=== PATIENT | female | born 1955 | race Caucasian/White ===

== ENCOUNTER → 2017-04-29 | Outpatient (CLI) | payer BC ==
--- NOTE | 2017-04-29 08:10 | US ---
EXAMINATION TYPE: US thyroid st tissue head/neck DATE OF EXAM: 04/29/2017 COMPARISON: NONE CLINICAL HISTORY: R94.6 Elevated TSH. Abnormal labs GLAND SIZE: Right Lobe: 4.6 x 1.0 x 1.4 cm Overall Parenchyma: homogenous Left Lobe: 3.1 x 0.9 x 1.2 cm Overall Parenchyma: homogeneous Isthmus Thickness: 0.2 cm NODULES RIGHT: # of nodules measured on right: 0 LEFT: # of nodules measured on left: 1 1. 0.6 X 0.7 x 0.7 cm isoechoic solid nodule at the lower pole with poorly defined margins; This n odule is wider than tall and shows intranodular vascularity. Prior size: No prior ISTHMUS: # of nodules measured in the isthmus: 0 Bilateral neck scanned, no evidence of lymphadenopathy. Sub-centimeter nodule left IMPRESSION: Subcentimeter nonspecific thyroid nodule left thyroid lobe.
== END | disposition home or self-care (01) ==
LOC: RADUSWWP 07:29
PROVIDERS: ATTEND Family Medicine
DX: R94.6 Abnormal results of thyroid function studies (principal)
CPT/HCPCS: 76536

== ENCOUNTER → 2017-10-22 | Outpatient (CLI) | payer BC ==
--- NOTE | 2017-10-22 15:19 | XR ---
EXAMINATION TYPE: XR chest 2V DATE OF EXAM: 10/22/2017 COMPARISON: NONE INDICATION: Cough short of breath TECHNIQUE: Frontal and lateral views of the chest are obtained. FINDINGS: The heart size is normal. The pulmonary vasculature is normal. The lungs are clear. IMPRESSION: 1. No acute pulmonary process.
== END | disposition home or self-care (01) ==
LOC: RADXRYALE 14:37
PROVIDERS: ATTEND Physician Assistant Medical
DX: R06.02 Shortness of breath (principal); R05 Cough
CPT/HCPCS: 71046

== ENCOUNTER → 2017-12-01 | Outpatient (CLI) | payer BC ==
--- NOTE | 2017-12-01 14:48 | US ---
EXAMINATION TYPE: US thyroid st tissue head/neck DATE OF EXAM: 12/01/2017 COMPARISON: Thyroid ultrasound April 29, 2017 CLINICAL HISTORY: R22.1 Localized swelling. Thyroid nodule, right neck submandibular palpable area, o ccasional tenderness GLAND SIZE: Right Lobe: 4.3 x 1.2 x 1.7 cm Overall Parenchyma: homogenous Left Lobe: 3.3 x 1.1 x 1.2 cm Overall Parenchyma: homogeneous Isthmus Thickness: 0.2 cm NODULES RIGHT: # of nodules measured on right: 0 LEFT: # of nodules measured on left: 1 1. 0.7 X 0.6 x 0.6 cm isoechoic solid nodule at the lower pole with poorly defined margins. This no dule is wider than tall and shows intranodular vascularity. Prior size: 0.6 x 0.7 x 0.7 cm ISTHMUS: # of nodules measured in the isthmus: 0 Bilateral neck scanned, right neck at palpable: superficial 1.2 x 0.4 x 1.0cm hypoechoic vascular str ucture, possible lymph node vs. other, left neck appears wnl. Left thyroid is redemonstrated small in size with single isoechoic poorly defined 7 mm nodule lower p ole level redemonstrated that shows no significant interval change. Towards end of study scanning of the right lateral neck submandibular region shows oval subcutaneous lesion that does not demonstrate normal fatty hilum IMPRESSION: Stable appearance of thyroid. Nonspecific subcutaneous presumed solid lesion right neck at level of s ubmandibular abnormality could reflect reactive lymph node. If lesion persists or enlarges further in vestigation with contrast-enhanced neck CT should be considered.
== END | disposition home or self-care (01) ==
LOC: RADUSWWP 13:57
PROVIDERS: ATTEND Family Medicine
DX: R22.1 Localized swelling, mass and lump, neck (principal)
CPT/HCPCS: 76536

== ENCOUNTER → 2017-12-15 | Outpatient (CLI) | payer BC ==
--- NOTE | 2017-12-15 08:42 | CT ---
EXAMINATION TYPE: CT soft tissue neck w con DATE OF EXAM: 12/15/2017 COMPARISON: 09/18/2013 HISTORY: 62-year-old female Localized swelling/lump in neck TECHNIQUE: Contiguous axial scanning of the soft tissues of the neck performed with IV Contrast, tyler ent injected with 100 ml mL of Isovue 300. Coronal/sagittal reconstructions performed. CT DLP: 586 mGycm Automated exposure control for dose reduction was used. FINDINGS: Visualized intracranial structures show no gross abnormality. Small mucosal retention cyst in the left sphenoid sinus. Mild mucosal thickening floor of the left ma xillary sinus. Mastoid air cells well pneumatized. Orbits and globes appear intact. Nasopharynx is clear. Some calcifications in the region of the right palatine tonsils compatible with sequela of remote inf ection. Oropharynx otherwise clear. Glottic and subglottic structures as well as the tracheal column and visualized upper lungs are clear . 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 Prevertebral soft tissues and epiglottis are within normal limits. Thyroid gland is satisfactory. To the extent visualized, the submandibular glands appear symmetrical. There is fatty atrophy of the right parotid gland which is present on prior exam as well. No cervical lymphadenopathy by CT size criteria. Scattered small lymph nodes are present on both side s of the upper neck. No osseous destructive process. IMPRESSION: NO SUSPICIOUS NECK MASS OR LYMPHADENOPATHY IDENTIFIED. THE PATIENT WAS UNABLE TO DIRECT ATTENTION TO A PARTICULAR AREA. THE EXAM CAN BE REVIEWED WITH DIRECTED ATTENTION TO THE CLINICALLY PALPABLE AREA I F DESIRED.
== END | disposition home or self-care (01) ==
LOC: RADCTMAIN 07:01
PROVIDERS: ATTEND Family Medicine
DX: R22.1 Localized swelling, mass and lump, neck (principal); R93.0 Abnormal findings on diagnostic imaging of skull and head, not elsewhere classified
CPT/HCPCS: 70491; Q9967

== ENCOUNTER → 2018-09-23 | Outpatient (CLI) | payer BC ==
--- NOTE | 2018-09-23 14:31 | BD ---
EXAMINATION TYPE: Axial Bone Density DATE OF EXAM: 09/23/2018 COMPARISON: NONE CLINICAL HISTORY: Height: 62 Weight: 153.8 FRAX RISK QUESTIONS: Alcohol (3 or more units per day): no Family History (Parent hip fracture): no Glucocorticoids (More than 3mos): no (Ex: prednisone, prednisolone, methylprednisolone, dexamethasone, and hydrocortisone). History of Fracture in Adulthood: no Secondary Osteoporosis: 1. Type 1 Diabetes: no 2. Hyperthyroidism: no 3. Menopause before 45: no 4. Malnutrition: no 5. Chronic liver disease: no Rheumatoid Arthritis: no Current Tobacco Use: no RISK FACTORS HISTORY OF: Family History of Osteoporosis: yes Active: yes Diet low in dairy products/other sources of calcium: no Postmenopausal woman: age 53 MEDICATIONS: Symbicort, pro-air, Osteoporosis Medications: boniva How Lon years Additional History: EXAM MEASUREMENTS: Bone mineral densitometry was performed using the [employer] System. Bone mineral density as measured about the Lumbar spine is: ----- L1-L4(G/cm2): 1.116 T Score Values are as follows: ----- L2: -0.6 ----- L3: -0.2 ----- L4: 0.3 ----- L1-L4: -0.5 Bone mineral density has: increased 4.7e study of: 07.15.2016 Bone mineral density about the R hip (g/cm2): 0.828 Bone mineral density about the L hip (g/cm2): 0.780 T Score values are as follows: -----R Neck: -1.5 -----L Neck: -1.9 -----R Total: -1.1 -----L Total: -1.2 Bone mineral density has: decreased -0.1 study of: 07.15.2016 IMPRESSION: Osteopenia about the bilateral femora. NOTE: T-SCORE=SD OF THE YOUNG ADULT MEAN.
--- NOTE | 2018-09-24 13:34 | MM ---
Reason for exam: screening (asymptomatic). Last mammogram was performed 2 years and 2 months ago. History: Patient is postmenopausal. Family history of breast cancer in paternal aunt. Benign stereotactic core biopsy of the right breast, November 04, 2004. Core biopsy of the right breast. Excisional biopsy of the left breast. Physical Findings: A clinical breast exam by your physician is recommended on an annual basis and results should be correlated with mammographic findings. MG 3D Screening Mammo W/Cad Bilateral CC and MLO view(s) were taken. Prior study comparison: July 15, 2016, bilateral MG screening mammo w CAD. June 08, 2015, bilateral MG screening mammo w CAD. The breast tissue is heterogeneously dense. This may lower the sensitivity of mammography. Benign appearing bilateral calcifications. Right biopsy marker noted. ASSESSMENT: Benign, BI-RAD 2 RECOMMENDATION: Routine screening mammogram of both breasts in 1 year.
== END | disposition home or self-care (01) ==
LOC: RADMAMWWP 12:42
PROVIDERS: ATTEND Obstetrics & Gynecology
DX: Z12.31 Encounter for screening mammogram for malignant neoplasm of breast (principal); M85.851 Other specified disorders of bone density and structure, right thigh; M85.852 Other specified disorders of bone density and structure, left thigh
CPT/HCPCS: 77063; 77067; 77080

== ENCOUNTER → 2019-10-05 | Outpatient (CLI) | payer BC ==
--- NOTE | 2019-10-10 09:28 | MM ---
Reason for exam: screening (asymptomatic). Last mammogram was performed 1 year ago. History: Patient is postmenopausal. Family history of breast cancer in paternal aunt. Benign stereotactic core biopsy of the right breast, November 04, 2004. Core biopsy of the right breast. Excisional biopsy of the left breast. Physical Findings: A clinical breast exam by your physician is recommended on an annual basis and results should be correlated with mammographic findings. MG 3D Screening Mammo W/Cad Bilateral CC and MLO view(s) were taken. Prior study comparison: September 23, 2018, bilateral MG 3d screening mammo w/cad. July 15, 2016, bilateral MG screening mammo w CAD. There are scattered fibroglandular densities. Finding: There are increased, fine, grouped/clustered calcifications, maybe associated with small mass. Previous mammotome biopsy in the right breast. New finding since September 23, 2018 and July 15, 2016. ASSESSMENT: Incomplete: need additional imaging evaluation, BI-RAD 0 RECOMMENDATION: Special view mammogram of the left breast. [facility] will attempt to contact patient to return for supplemental views.
== END | disposition home or self-care (01) ==
LOC: RADMAMWWP 07:11
PROVIDERS: ATTEND Family Medicine
DX: Z12.31 Encounter for screening mammogram for malignant neoplasm of breast (principal)
CPT/HCPCS: 77063; 77067

== ENCOUNTER → 2019-10-13 | Outpatient (CLI) | payer BC ==
--- NOTE | 2019-10-18 07:24 | MM ---
Reason for exam: additional evaluation requested from abnormal screening. Last mammogram was performed less than 1 month ago. History: Patient is postmenopausal. Family history of breast cancer in paternal aunt. Benign stereotactic core biopsy of the right breast, November 04, 2004. Core biopsy of the right breast. Excisional biopsy of the left breast. Took hormonal contraceptives for 15 years. Physical Findings: Nurse did not find any significant physical abnormalities on exam. MG 3D Work Up W/Cad LT CC with magnification, ML with magnification, and ML view(s) were taken of the left breast. Prior study comparison: October 05, 2019, bilateral MG 3d screening mammo w/cad. September 23, 2018, bilateral MG 3d screening mammo w/cad. Finding: There are increased number of fine, round, grouped/clustered calcifications in the upper outer quadrant, middle position of the left breast, 6cm from the nipple. New finding since October 05, 2019 and September 23, 2018. These results were verbally communicated with the patient and result sheet given to the patient on 10/13/19. ASSESSMENT: Suspicious, BI-RAD 4 RECOMMENDATION: Stereotactic core biopsy of the left breast. Patient did not want to scheduled until after speaking to primary physician. Office called and spoke with staff. PRELIMINARY REPORT CALLED AND FAXED TO DR. CALERO ON 10/13/19.
== END | disposition home or self-care (01) ==
LOC: RADMAMWWP 10:19
PROVIDERS: ATTEND Family Medicine
DX: R92.8 Other abnormal and inconclusive findings on diagnostic imaging of breast (principal)
CPT/HCPCS: 77061; 77065

== ENCOUNTER → 2019-12-30 | Outpatient (CLI) | payer BC ==
[2019-12-30 10:11] VITALS: BP 142/83; PULSE 89; RESP 18; TEMP 98.4
--- NOTE | 2019-12-30 10:47 | P.GSHP ---
History of Present Illness H&P Date: 12/30/19 Chief Complaint: Abnormal left breast mammogram Joy is a 64-year-old white female seen in consultation for Dr. Yost. She had a bilateral mammogram performed [place] [address]. This revealed some calcifications in the left breast for which further evaluation was recommended. A diagnostic mammogram of the left breast was performed and 31880. There were increased fine grouped calcifications in the upper outer quadrant of the left breast and stereotactic core biopsy was recommended. The patient does not feel anything of concern in her breasts. This was a routine screening mammogram. The patient does not complain of any lumps masses or nodules in her breast. Many years ago she had an infection in her left breast and intermittently continues to get some nipple discharge. This is very sporadic and nonbloody. It is white in nature. She has had needle biopsies of both breasts in the past and they were all benign. This was many years ago and I do not have copy of the path report. She is not complaining of any pain in her breast. She drinks 2-3 cups of coffee per day. She is chocolate daily. She does not smoke and is not exposed to secondhand smoke. She does not take any hormones. Family history: father: colon cancer paternal aunt: ? breast cancer Hormonal History: menarche: 13 , 1 miscarriage, first born at 25, breast fed: yes menopause: 56 BCP: 10 years hormones: over the counter 6 months estrogen supplement Surgical History: 1. carpal tunnel 2. breast biopsies Medical History: asthma HTN ? Social History: former smoker stopped 22 years ago, used to smoke 1/PPD for 30 years alcohol: occasional beer drugs: not since 19 eyars old - Constitutional Constitutional: Denies chills, Denies fever - EENT Eyes: denies blurred vision, denies pain Ears: deny: decreased hearing, tinnitus Ears, nose, mouth and throat: Denies headache, Denies sore throat - Breasts Breasts: bilateral: as per HPI - Cardiovascular Cardiovascular: Denies chest pain, Denies shortness of breath - Respiratory Comment: asthma - Gastrointestinal Gastrointestinal: Denies abdominal pain, Denies diarrhea, Denies nausea, Denies vomiting - Menstruation Menstruation: Reports postmenopausal - Musculoskeletal Comment: anterior leg pain at times - Integumentary Integumentary: Denies pruritus, Denies rash - Neurological Neurological: Reports numbness - Psychiatric Psychiatric: Reports anxiety - Endocrine Endocrine: Reports weight change, Denies fatigue - Hematologic/Lymphatic Comment: none - Allergic/Immunologic Allergic/Immunologic: Reports as per HPI Past Medical History Past Medical History: Asthma History of Any Multi-Drug Resistant Organisms: None Reported Additional Past Surgical History / Comment(s): Hand sx Past Psychological History: No Psychological Hx Reported Smoking Status: Former smoker Past Alcohol Use History: Occasional Past Drug Use History: None Reported Medications and Allergies Home Medications Medication Instructions Recorded Confirmed Type Albuterol Sulfate [Proair 1 puff INHALATION Q6H PRN 12/30/19 12/30/19 History Digihaler] Budesonide-Formot 160-4.5 Mcg 2 puff INHALATION BID 12/30/19 12/30/19 History [Symbicort 160-4.5 Mcg Inhaler] Ibandronate Sodium [Boniva] 150 mg PO QMONTH 12/30/19 12/30/19 History Allergies Allergy/AdvReac Type Severity Reaction Status Date / Time clindamycin Allergy Anaphylaxis Verified 12/30/19 10:11 Surgical - Exam Vital Signs Temp Pulse Resp BP Pulse Ox 98.4 F 89 18 142/83 98 12/30/19 10:08 12/30/19 10:08 12/30/19 10:08 12/30/19 10:08 12/30/19 10:08 BMI 27.4 - General well developed, well nourished, no distress - Eyes normal ocular movement - ENT no hearing loss, no congestion - Neck no masses, trachea midline - Respiratory normal respiratory effort, clear to auscultation - Cardiovascular Rhythm: regular Heart Sounds: normal: S1, S2 - Abdomen Abdomen: soft, non tender, bowel sounds, no guarding, no rigid, no rebound - Integumentary normal turgor - Neurologic no disoriented, no combative - Musculoskeletal normal gait, normal posture - Psychiatric oriented to time, oriented to person, oriented to place, speech is normal, memory intact breast exam: BRA "medium" probable size D inspection: No skin lesions of concern, nipple on right chronically inverted, no discharge noted on today's exam, ptosis grade 2 Palpation: Right breast: Multi-positional exam fibrocystic changes, no dominant masses or nodules of concern, nipple chronically inverted Right axilla: No adenopathy of concern Left breast: Multi-positional exam fibrocystic changes, mild fullness upper- outer quadrant area with no discrete dominant mass or nodule of concern, no nipple inversion or discharge Left axilla: No adenopathy of concern Results Mammograms reviewed with radiologist Dr. Contreras, he concurs that a stereo biopsy is appropriate and an ultrasound is not needed in the left breast Assessment and Plan Assessment: Impression: 1. Mammographic abnormality left breast 2. Fibrocystic breast changes bilateral 3. Chronically inverted right nipple 4. asthma Plan: 1. left breast sterotactic biopsy Risks and benefits of stereotactic core biopsy were discussed with the patient. Alternatives such as watchful waiting or open biopsy is not recommended at this time. Risks include but are not limited to bleeding, infection, reaction to the anesthetic. Additionally there is always a risk that the sample the area would be discordant and if that were to And that open biopsy might be recommended. CC: DR. Yost encounter 40 minutes, > 50% of time in planning and counselling Time with Patient: Greater than 30
== END | disposition home or self-care (01) ==
LOC: WWCWWP 10:01
PROVIDERS: ATTEND Surgery
DX: Z53.9 Procedure and treatment not carried out, unspecified reason (principal)

== ENCOUNTER → 2020-01-18 | Outpatient (CLI) | payer BC | END | disposition home or self-care (01) | LOC: LABWHC1 08:20 | PROVIDERS: ATTEND Surgery | DX: U07.1 COVID-19 (principal) ==

== ENCOUNTER → 2020-01-20 | Day surgery (SDC) | payer BC ==
[2020-01-20 07:21] VITALS: RESP 16; TEMP 98.2
--- NOTE | 2020-01-20 08:25 | P.PCN ---
Date of Procedure: 01/20/20 Preoperative Diagnosis: Mammographic abnormality left breast Postoperative Diagnosis: Same/microcalcifications Procedure(s) Performed: Left breast stereotactic core biopsy Anesthesia: local Surgeon: Emelia Julio Pathology: other Condition: stable Disposition: same day Indications for Procedure: Microcalcifications of concern left breast Operative Findings: Microcalcifications and specimen Description of Procedure: The patient is a 64-year-old white female who presented with a mammogram revealing microcalcifications of concern in the left breast. These were fine wound group clustered calcifications in the upper outer quadrant middle position of the left breast. Sampling via stereotactic core biopsy was discussed with the patient. Risk and benefits were discussed and she wished to proceed. Alternatives which would include open biopsy or watchful waiting were not recommended. The patient was taken to the stereotactic core biopsy room. She was positioned on the lo-rad table. A soda room operator film was obtained. A CC from above approach was utilized. The area of concern was identified. Stereo pair was obtained. The lesion was targeted. The breast was prepped using Betadine. A 9-gauge vacuum- assisted core rotating biopsy needle was driven to the correct coordinates. The area was anesthetized using 20 mL of 1% lidocaine prior to this. The needle was fired. Post fire film was obtained and the needle was noted to be in the co rrect location. 12 core biopsies were obtained. Radiograph of the specimen revealed that the microcalcifications of concern had been sampled. A secure marked top at marker was left in place. The patient tolerated the procedure in stable condition. The specimen was sent to pathology. The patient will follow- up with Dr. Jordan as an outpatient.
[2020-01-20 08:47] VITALS: BP 144/83; PULSE 83
--- NOTE | 2020-01-20 08:47 | MM ---
EXAMINATION TYPE: MG stereo VAD BX LT DATE OF EXAM: 01/20/2020 COMPARISON: Prior mammogram October 13, 2019 and older mammograms. CLINICAL HISTORY: Abnormal mammogram, suspicious group of calcifications. TECHNIQUE: Stereotactic guided core biopsy of left breast. FINDINGS: The procedure of stereotactic guided core biopsy was explained to the patient. Benefits, alternatives, and risks were discussed. An informed consent was then obtained. The shortness pathway for biopsy was chosen. Shortness pathway was cranial approach. I performed the localization, then surgeon, Dr. Julian Cha performed the remainder of the procedure. A vacuum assisted biopsy gun was used to obtain multiple core samples. The patient tolerated the procedure well without any immediate complication. The patient was kept in the radiology department for short stay after the procedure and then discharged home in stable condition. Targeted calcifications are identified in specimen mammogram. Post biopsy mammogram shows the clip to appear in satisfactory position relative to the targeted area of concern on the preprocedure images. No significant residual calcifications are present. IMPRESSION: SUCCESSFUL, UNCOMPLICATED STEREOTACTIC GUIDED CORE BIOPSY OF AREA OF CONCERN IN THE LEFT BREAST, FULL PATHOLOGY RESULTS TO FOLLOW. Intermediate index of suspicion noted at time of procedure. Pathology Results: Benign LEFT BREAST, STEREOTACTIC CORE BIOPSY: Fibrocystic changes including fibroadenomatoid hyperplasia with calcifications, fibrosis, cysts and adenosis. Recommendation Follow up mammogram of the left breast in 6 months. AYOD
== END ==
LOC: RADMAMWWP 07:08
PROVIDERS: ATTEND Surgery
DX: N60.12 Diffuse cystic mastopathy of left breast (principal); R92.1 Mammographic calcification found on diagnostic imaging of breast; N62 Hypertrophy of breast; R92.8 Other abnormal and inconclusive findings on diagnostic imaging of breast; Z88.1 Allergy status to other antibiotic agents
CPT/HCPCS: 88305; 19081; A4648; J2001

== ENCOUNTER → 2020-01-27 | Outpatient (CLI) | payer BC ==
[2020-01-27 15:24] VITALS: BP 148/83; PULSE 95; RESP 18; TEMP 97.9
--- NOTE | 2020-01-27 15:32 | P.PN ---
Subjective Progress Note Date: 01/27/20 Principal diagnosis: Stero biopsy left breast This 65-year-old white female status post stereotactic core biopsy left breast and [id number]. Pathology revealed fibrocystic changes including fiber adenomatoid hyperplasia with calcifications, fibrosis, cysts and adenosis. She has not had any complications related to the procedure. The specimen radiograph was reviewed by the mammogram and it was felt to be contemplated. Objective - Vital Signs Vital signs: Vital Signs Temp 97.9 F 01/27/20 15:22 Pulse 95 01/27/20 15:22 Resp 18 01/27/20 15:22 BP 148/83 01/27/20 15:22 Pulse Ox 99 01/27/20 15:22 Intake & Output 01/26/20 01/27/20 01/27/20 18:59 06:59 18:59 Weight 68.039 kg - Exam BMI 27.4 - Constitutional General appearance: Present: average body habitus - EENT Eyes: Present: EOMI ENT: Present: hearing grossly normal - Respiratory Respiratory: bilateral: CTA - Cardiovascular Rhythm: regular Heart sounds: normal: S1, S2 - Integumentary Integumentary Comment(s): The biopsy site left breast clean and dry no evidence of infection - Musculoskeletal Musculoskeletal: Present: gait normal - Psychiatric Psychiatric: Present: A&O x's 3, appropriate affect, intact judgment & insight Assessment and Plan Assessment: Impression: 1. Status post prostatectomy core biopsy left breast/pathology benign Plan: 1. Repeat left breast mammogram in 6 months time with physician exam at that time CC: DR. Nava encounter 10 minutes
== END | disposition home or self-care (01) ==
LOC: WWCWWP 15:17
PROVIDERS: ATTEND Surgery
DX: Z53.9 Procedure and treatment not carried out, unspecified reason (principal)

== ENCOUNTER → 2020-03-09 | Outpatient (CLI) | payer BC ==
--- NOTE | 2020-03-09 16:14 | XR ---
EXAMINATION TYPE: XR foot complete RT DATE OF EXAM: 03/09/2020 CLINICAL HISTORY: Lateral proximal foot pain after rolling ankle today TECHNIQUE: Frontal, lateral, and oblique images of the right foot are obtained. COMPARISON: None FINDINGS: There is no acute fracture/dislocation evident in the right foot. The joint spaces in the foot appear within normal limits. There is soft tissue swelling of the lateral aspect of the midfoot . IMPRESSION: Soft tissue swelling at the lateral midfoot. No acute osseous abnormality.
== END ==
LOC: RADXRYALE 14:48
PROVIDERS: ATTEND Physician Assistant
DX: M79.89 Other specified soft tissue disorders (principal)

== ENCOUNTER 2020-07-01 07:29 | Inpatient (IN) | payer BC ==
[2020-07-01] MEDS ORDERED: ACETAMINOPHEN TAB 500 MG TAB PO STA (07:48)
--- NOTE | 2020-07-01 07:53 | ED ---
General Adult HPI - General Chief complaint: Shortness of Breath Stated complaint: SOB, covid + Time Seen by Provider: 07/01/20 07:30 Source: patient, RN notes reviewed, old records reviewed Mode of arrival: ambulatory Limitations: no limitations - History of Present Illness Initial comments: This is a 65-year-old female with past medical history significant for asthma and recently diagnosed COVID 19. Patient states she was diagnosed on . Patient states since then she continues to have a fever and is having a hard time getting the fever down. Patient states she's also been more short of breath and she needs to use her nebulizer and when she does she's better for approximately 3 hours and it all started over again. Patient states she was placed on 2 antibiotics and steroids on . Patient states she's been taking them regularly but did not take them today. Patient currently states she feels better than she had this morning she did a nebulizer treatment prior to coming in but she still feels more short of breath normal. Patient states she's been having intermittent diarrhea. Patient states she's also been having inter mittent nausea but no vomiting. Patient denies any loss of taste. - Related Data Home Medications Medication Instructions Recorded Confirmed Budesonide-Formot 160-4.5 Mcg 2 puff INHALATION RT-BID 12/30/19 07/01/20 [Symbicort 160-4.5 Mcg Inhaler] Ibandronate Sodium [Boniva] 150 mg PO QMONTH 12/30/19 07/01/20 Albuterol Inhaler [Ventolin Hfa 2 puff INHALATION RT-Q4H PRN 01/11/20 07/01/20 Inhaler] Albuterol Nebulized [Ventolin 2.5 mg INHALATION RT-Q6H PRN 01/11/20 07/01/20 Nebulized] Acetaminophen [Tylenol 8 Hour] 650 mg PO Q8H PRN 07/01/20 07/01/20 Azithromycin [Zithromax Z-pack (6 See Taper PO DAILY 07/01/20 07/01/20 tabs)] Benzonatate [Benzonatate Perle] 200 mg PO TID 07/01/20 07/01/20 Cefpodoxime Proxetil [Vantin] 200 mg PO Q12HR 07/01/20 07/01/20 Ibuprofen [Motrin Ib] 200 mg PO Q8H PRN 07/01/20 07/01/20 predniSONE [Deltasone] 20 mg PO BID 07/01/20 07/01/20 Allergies Allergy/AdvReac Type Severity Reaction Status Date / Time clindamycin Allergy Anaphylaxis Verified 07/01/20 10:07 Review of Systems ROS Statement: Those systems with pertinent positive or pertinent negative responses have been documented in the HPI. ROS Other: All systems not noted in ROS Statement are negative. Past Medical History Past Medical History: Asthma History of Any Multi-Drug Resistant Organisms: None Reported Additional Past Surgical History / Comment(s): katie. carpal tunnel release, left excisional breast biopsy benign, right breast biopsy Past Psychological History: No Psychological Hx Reported Smoking Status: Former smoker Past Alcohol Use History: Occasional Past Drug Use History: None Reported General Exam - General Exam Comments Initial Comments: GENERAL: Patient is well-developed and well-nourished. Patient is nontoxic and well- hydrated and is in mild distress. ENT: Neck is soft and supple. No significant lymphadenopathy is noted. Oropharynx is clear. Moist mucous membranes. Neck has full range of motion without eliciting any pain. EYES: The sclera were anicteric and conjunctiva were pink and moist. Extraocular movements were intact and pupils were equal round and reactive to light. Eyelids were unremarkable. PULMONARY: Unlabored respirations. Good breath sounds bilaterally. No audible rales rhonchi or wheezing was noted. CARDIOVASCULAR: There is a regular rate and rhythm without any murmurs gallops or rubs. ABDOMEN: Soft and nontender with normal bowel sounds. SKIN: Skin is clear with no lesions or rashes and otherwise unremarkable. NEUROLOGIC: Patient is alert and oriented x3. Cranial nerves II through XII are grossly intact. Motor and sensory are also intact. Normal speech, volume and content. Symmetrical smile. MUSCULOSKELETAL: Normal extremities with adequate strength and full range of motion. LYMPHATICS: No significant lymphadenopathy is noted PSYCHIATRIC: Normal psychiatric evaluation. Limitations: no limitations Course Vital Signs 07/01/20 07:31 Temperature 100.8 F H Pulse Rate 146 H Respiratory 24 Rate Blood Pressure 153/91 O2 Sat by Pulse 98 Oximetry Medical Decision Making - Medical Decision Making EKG shows sinus tachycardia at 122 bpm MN interval 246 QRS is 82 QT interval 314 QTC is 447. Patient's EKG shows no ST segment elevation or depression. Chest x-ray shows developing infiltrate on the right I spoke with Dr. Kathleen he agreed patient needed to be admitted admitted the patient wrote admitting orders. - Lab Data Result diagrams: 07/01/20 08:20 07/01/20 08:20 Lab Results 07/01/20 07/01/20 07/01/20 Range/Units 08:20 08:20 08:20 WBC 8.0 (3.8-10.6) k/uL RBC 4.92 (3.80-5.40) m/uL Hgb 14.5 (11.4-16.0) gm/dL Hct 42.2 (34.0-46.0) % MCV 85.7 (80.0-100.0) fL MCH 29.4 (25.0-35.0) pg MCHC 34.3 (31.0-37.0) g/dL RDW 13.4 (11.5-15.5) % Plt Count 176 (150-450) k/uL MPV 8.1 Neutrophils % 86 % Lymphocytes % 8 % Monocytes % 3 % Eosinophils % 1 % Basophils % 1 % Neutrophils # 6.9 (1.3-7.7) k/uL Lymphocytes # 0.7 L (1.0-4.8) k/uL Monocytes # 0.3 (0-1.0) k/uL Eosinophils # 0.1 (0-0.7) k/uL Basophils # 0.0 (0-0.2) k/uL PT 9.9 (9.0-12.0) sec INR 1.0 (<1.2) APTT 23.2 (22.0-30.0) sec D-Dimer <0.17 (<0.60) mg/L FEU Sodium 138 (137-145) mmol/L Potassium 4.1 (3.5-5.1) mmol/L Chloride 105 (98-107) mmol/L Carbon Dioxide 26 (22-30) mmol/L Anion Gap 7 mmol/L BUN 16 (7-17) mg/dL Creatinine 0.74 (0.52-1.04) mg/dL Est GFR (CKD-EPI)AfAm >90 (>60 ml/min/1.73 sqM) Est GFR (CKD-EPI)NonAf 87 (>60 ml/min/1.73 sqM) Glucose 113 H (74-99) mg/dL Plasma Lactic Acid Sean (0.7-2.0) mmol/L Calcium 9.5 (8.4-10.2) mg/dL Magnesium 1.8 (1.6-2.3) mg/dL Total Bilirubin 0.5 (0.2-1.3) mg/dL AST 17 (14-36) U/L ALT 17 (4-34) U/L Alkaline Phosphatase 64 (38-126) U/L Lactate Dehydrogenase 544 (313-618) U/L C-Reactive Protein 47.3 H (<10.0) mg/L Total Protein 7.1 (6.3-8.2) g/dL Albumin 4.2 (3.5-5.0) g/dL Coronavirus (PCR) (Not Detectd) Influenza Type A RNA (Not Detectd) Influenza Type B (PCR) (Not Detectd) 07/01/20 07/01/20 Range/Units 08:20 08:20 WBC (3.8-10.6) k/uL RBC (3.80-5.40) m/uL Hgb (11.4-16.0) gm/dL Hct (34.0-46.0) % MCV (80.0-100.0) fL MCH (25.0-35.0) pg MCHC (31.0-37.0) g/dL RDW (11.5-15.5) % Plt Count (150-450) k/uL MPV Neutrophils % % Lymphocytes % % Monocytes % % Eosinophils % % Basophils % % Neutrophils # (1.3-7.7) k/uL Lymphocytes # (1.0-4.8) k/uL Monocytes # (0-1.0) k/uL Eosinophils # (0-0.7) k/uL Basophils # (0-0.2) k/uL PT (9.0-12.0) sec INR (<1.2) APTT (22.0-30.0) sec D-Dimer (<0.60) mg/L FEU Sodium (137-145) mmol/L Potassium (3.5-5.1) mmol/L Chloride (98-107) mmol/L Carbon Dioxide (22-30) mmol/L Anion Gap mmol/L BUN (7-17) mg/dL Creatinine (0.52-1.04) mg/dL Est GFR (CKD-EPI)AfAm (>60 ml/min/1.73 sqM) Est GFR (CKD-EPI)NonAf (>60 ml/min/1.73 sqM) Glucose (74-99) mg/dL Plasma Lactic Acid Sean 1.2 (0.7-2.0) mmol/L Calcium (8.4-10.2) mg/dL Magnesium (1.6-2.3) mg/dL Total Bilirubin (0.2-1.3) mg/dL AST (14-36) U/L ALT (4-34) U/L Alkaline Phosphatase (38-126) U/L Lactate Dehydrogenase (313-618) U/L C-Reactive Protein (<10.0) mg/L Total Protein (6.3-8.2) g/dL Albumin (3.5-5.0) g/dL Coronavirus (PCR) Detected A (Not Detectd) Influenza Type A RNA Not Detected (Not Detectd) Influenza Type B (PCR) Not Detected (Not Detectd) Disposition Clinical Impression: Pneumonia due to COVID-19 virus Disposition: ADMITTED IP TO THIS HOSP Referrals: Keith Yost DO [Primary Care Provider] - 1-2 days Time of Disposition: 10:12
--- NOTE | 2020-07-01 08:37 | XR ---
EXAMINATION TYPE: XR chest 1V portable DATE OF EXAM: 07/01/2020 HISTORY: Shortness of breath. COMPARISON: October 22, 2017 TECHNIQUE: Single view of the chest is submitted. FINDINGS: Demonstrated are scattered senescent parenchymal change. Suggestion of increased density right medial lung base may reflect developing infiltrate. Correlate c linically and progress studies may be of value. The heart is stable. Hilar and mediastinal structures are within normal limits. Degenerative changes are seen of the dorsal spine. IMPRESSION: 1. Suggestion of increased density right medial lung base may reflect developing infiltrate. Correla te clinically and progress studies may be of value.
[2020-07-01 08:45] LABS: Basophils % (A) 1 %; Eosinophils # (A) 0.1 k/uL (0-0.7); Eosinophils % (A) 1 %; HCT 42.2 % (34.0-46.0); HGB 14.5 gm/dL (11.4-16.0); Lymphocytes # (A) 0.7 k/uL (1.0-4.8); Lymphocytes % (A) 8 %; MCH 29.4 pg (25.0-35.0); MCHC 34.3 g/dL (31.0-37.0); MCV 85.7 fL (80.0-100.0); Mean Platelet Volume 8.1; Monocytes # (A) 0.3 k/uL (0-1.0); Monocytes % (A) 3 %; Neutrophils # (A) 6.9 k/uL (1.3-7.7); Neutrophils % (A) 86 %; Platelet Count 176 k/uL (150-450); RBC 4.92 m/uL (3.80-5.40); RDW 13.4 % (11.5-15.5)
[2020-07-01 09:00] LABS: ALT 17 U/L (4-34); AST 17 U/L (14-36); African American GFR (CKD) >90 (>60 ml/min/1.73 sqM); Albumin 4.2 g/dL (3.5-5.0); Alkaline Phosphatase 64 U/L (38-126); Anion Gap 7 mmol/L; Blood Urea Nitrogen 16 mg/dL (7-17); C Reactive Protein 47.3 mg/L (<10.0); Calcium 9.5 mg/dL (8.4-10.2); Carbon Dioxide 26 mmol/L (22-30); Chloride 105 mmol/L (98-107); Glucose 113 mg/dL (74-99); LDH 544 U/L (313-618); Magnesium 1.8 mg/dL (1.6-2.3); Non-African American GFR(CKD) 87 (>60 ml/min/1.73 sqM); Potassium 4.1 mmol/L (3.5-5.1); Sodium 138 mmol/L (137-145); Total Bilirubin 0.5 mg/dL (0.2-1.3); Total Protein 7.1 g/dL (6.3-8.2)
[2020-07-01 09:21] LABS: SARS-CoV-2 RNA Rapid Abbott Detected (Not Detectd)
[2020-07-01 09:23] LABS: D-Dimer <0.17 mg/L FEU (<0.60); Partial Thromboplastin Time 23.2 sec (22.0-30.0); Prothrombin Time 9.9 sec (9.0-12.0)
[2020-07-01] MEDS ORDERED: SODIUM CHLORIDE 0.9% 1,000 ML IV ONE (10:13)
--- NOTE | 2020-07-01 11:47 | P.HPIM ---
History of Present Illness 65-year-old pleasant female was diagnosed with Covid 19 about 10 days ago came and felt dehydrated. Patient is still having fevers patient that is already on prednisone, antibiotics. Chest x-ray showed there may be an early infiltrate in the right side although not convinced infiltrate or pneumonia. Patient denied any significant cough patient is feeling better. She'll even ER physician evaluated the patient patient wanted to be admitted and was concerned. I did discuss with the patient patient is agreeable to go home I did give her an option of monitoring for 1 more night. Patient was instructed to come back to the hospital ifshe feels worse or if her respiratory status worsens. His current serum creatinine is within normal limits patient mucous members are not dry patient will be increased to drink lots of water at home will be discharged today. Review of Systems REVIEW OF SYSTEMS: CONSTITUTIONAL: As mentioned in HPI HEENT: No recent visual problems or hearing problems. Denied any sore throat. CARDIOVASCULAR: No chest pain, orthopnea, PND, no palpitations, no syncope. PULMONARY: No shortness of breath, no cough, no hemoptysis. GASTROINTESTINAL: No diarrhea, no nausea, no vomiting, no abdominal pain. NEUROLOGICAL: No headaches, no weakness, no numbness. HEMATOLOGICAL: Denies any bleeding or petechiae. GENITOURINARY: Denies any burning micturition, frequency, or urgency. MUSCULOSKELETAL/RHEUMATOLOGICAL: Denies any joint pain, swelling, or any muscle pain. ENDOCRINE: Denies any polyuria or polydipsia. The rest of the 14-point review of systems is negative. Past Medical History Past Medical History: Asthma History of Any Multi-Drug Resistant Organisms: None Reported Additional Past Surgical History / Comment(s): katie. carpal tunnel release, left excisional breast biopsy benign, right breast biopsy Past Psychological History: No Psychological Hx Reported Smoking Status: Former smoker Past Alcohol Use History: Occasional Past Drug Use History: None Reported Medications and Allergies Home Medications Medication Instructions Recorded Confirmed Type Budesonide-Formot 160-4.5 Mcg 2 puff INHALATION RT-BID 12/30/19 07/01/20 History [Symbicort 160-4.5 Mcg Inhaler] Ibandronate Sodium [Boniva] 150 mg PO QMONTH 12/30/19 07/01/20 History Albuterol Inhaler [Ventolin Hfa 2 puff INHALATION RT-Q4H PRN 01/11/20 07/01/20 History Inhaler] Albuterol Nebulized [Ventolin 2.5 mg INHALATION RT-Q6H PRN 01/11/20 07/01/20 History Nebulized] Acetaminophen [Tylenol 8 Hour] 650 mg PO Q8H PRN 07/01/20 07/01/20 History Azithromycin [Zithromax Z-pack (6 See Taper PO DAILY 07/01/20 07/01/20 History tabs)] Benzonatate [Benzonatate Perle] 200 mg PO TID 07/01/20 07/01/20 History Cefpodoxime Proxetil [Vantin] 200 mg PO Q12HR 07/01/20 07/01/20 History Ibuprofen [Motrin Ib] 200 mg PO Q8H PRN 07/01/20 07/01/20 History predniSONE [Deltasone] 20 mg PO BID 07/01/20 07/01/20 History Allergies Allergy/AdvReac Type Severity Reaction Status Date / Time clindamycin Allergy Anaphylaxis Verified 07/01/20 10:07 Physical Exam Vitals: Vital Signs Temp Pulse Resp BP Pulse Ox 07/01/20 10:30 101 H 18 123/69 07/01/20 10:00 107 H 18 130/85 93 L 07/01/20 09:30 104 H 16 133/85 92 L 07/01/20 09:00 110 H 15 131/85 92 L 07/01/20 08:33 124 H 24 07/01/20 07:31 100.8 F H 146 H 24 153/91 98 Intake and Output 06/30/20 07/01/20 07/01/20 22:59 06:59 14:59 Other: Weight 65.771 kg PHYSICAL EXAMINATION: GENERAL: The patient is alert and oriented x3, not in any acute distress. Well developed, well nourished. HEENT: Pupils are round and equally reacting to light. EOMI. No scleral icterus. No conjunctival pallor. Normocephalic, atraumatic. No pharyngeal erythema. No thyromegaly. CARDIOVASCULAR: S1 and S2 present. No murmurs, rubs, or gallops. PULMONARY: Chest is clear to auscultation, no wheezing or crackles. ABDOMEN: Soft, nontender, nondistended, normoactive bowel sounds. No palpable organomegaly. MUSCULOSKELETAL: No joint swelling or deformity. EXTREMITIES: No cyanosis, clubbing, or pedal edema. NEUROLOGICAL: Gross neurological examination did not reveal any focal deficits. SKIN: No rashes. Note: Because of COVID 19 isolation, some of the history and physical exam findings are indirect and obtained from nursing staff, and other physician examinations to avoid unnecessary contact with the patient. Results CBC & Chem 7: 07/01/20 08:20 07/01/20 08:20 Labs: Abnormal Lab Results - Last 24 Hours (Table) 07/01/20 07/01/20 07/01/20 Range/Units 08:20 08:20 08:20 Lymphocytes # 0.7 L (1.0-4.8) k/uL Glucose 113 H (74-99) mg/dL C-Reactive Protein 47.3 H (<10.0) mg/L Coronavirus (PCR) Detected A (Not Detectd) Assessment and Plan Plan: -Coumadin 19 infection/pneumonia: Patient doesn't have any significant symptoms of shortness of breath does have body aches and fever. Symptomatic management for these and patient will be discharged and patient will continue her antibiotics and steroids that were prescribed by her physician. -Asthma without any acute exacerbation -The tachycardia secondary to fever. Patient will be discharged today with instructions to come back to the hospital if she gets more short of breath.
--- NOTE | 2020-07-01 11:47 | P.DS ---
Providers Date of admission: 07/01/20 10:16 Attending physician: Jaz Kathleen [facility] Course: As mentioned in HPI Plan - Discharge Summary New Discharge Prescriptions: Continue Ibandronate Sodium [Boniva] 150 mg PO QMONTH Budesonide-Formot 160-4.5 Mcg [Symbicort 160-4.5 Mcg Inhaler] 2 puff INHALATION RT-BID Albuterol Inhaler [Ventolin Hfa Inhaler] 2 puff INHALATION RT-Q4H PRN PRN Reason: Shortness Of Breath Albuterol Nebulized [Ventolin Nebulized] 2.5 mg INHALATION RT-Q6H PRN PRN Reason: Shortness Of Breath predniSONE [Deltasone] 20 mg PO BID Ibuprofen [Motrin Ib] 200 mg PO Q8H PRN PRN Reason: Fever Cefpodoxime Proxetil [Vantin] 200 mg PO Q12HR Benzonatate [Benzonatate Perle] 200 mg PO TID Azithromycin [Zithromax Z-pack (6 tabs)] See Taper PO DAILY Acetaminophen [Tylenol 8 Hour] 650 mg PO Q8H PRN PRN Reason: Pain Or Fever > 100.5 Discharge Medication List Budesonide-Formot 160-4.5 Mcg [Symbicort 160-4.5 Mcg Inhaler] 2 puff INHALATION RT-BID 12/30/19 [History] Ibandronate Sodium [Boniva] 150 mg PO QMONTH 12/30/19 [History] Albuterol Inhaler [Ventolin Hfa Inhaler] 2 puff INHALATION RT-Q4H PRN 01/11/20 [History] Albuterol Nebulized [Ventolin Nebulized] 2.5 mg INHALATION RT-Q6H PRN 01/11/20 [History] Acetaminophen [Tylenol 8 Hour] 650 mg PO Q8H PRN 07/01/20 [History] Azithromycin [Zithromax Z-pack (6 tabs)] See Taper PO DAILY 07/01/20 [History] Benzonatate [Benzonatate Perle] 200 mg PO TID 07/01/20 [History] Cefpodoxime Proxetil [Vantin] 200 mg PO Q12HR 07/01/20 [History] Ibuprofen [Motrin Ib] 200 mg PO Q8H PRN 07/01/20 [History] predniSONE [Deltasone] 20 mg PO BID 07/01/20 [History] Follow up Appointment(s)/Referral(s): Keith Yost DO [Primary Care Provider] - 3 Days
[2020-07-01 11:52] LABS: Ferritin 69.4 ng/mL (10.0-291.0)
[2020-07-01] MEDS: ACETAMINOPHEN TAB 325 MG TAB PO PRN ×3 (13:37→22:18)
[2020-07-01] MEDS ORDERED: IBUPROFEN 200 MG TAB PO PRN (14:08)
[2020-07-01] MEDS ORDERED: ALBUTEROL NEBULIZED 2.5 MG/3 ML INHALATION PRN (14:08)
[2020-07-01] MEDS ORDERED: NON FORMULARY DRUG (Acetaminophen [Tylenol 8 Hour] 650 MG Tablet.Er) PO PRN (14:08)
[2020-07-01] MEDS ORDERED: ALBUTEROL HFA INHALER INHALATION PRN (14:08)
[2020-07-01] MEDS ORDERED: AZITHROMYCIN 500 MG in SODIUM CHLORIDE 0.9% 250 ML IVPB STA (15:03)
--- NOTE | 2020-07-01 15:11 | P.HPIM ---
History of Present Illness Patient is a 41-year-old the female came in with the fever. Patient's symptoms started about 3-4 days ago. Patient does have history of asthma patient was hypoxic with the saturations of around the 84-88% at home because of which patient came to the hospital. Patient is bit tachycardic now because of the fever. Patient is still having fevers patient that is already on prednisone, antibiotics. Chest x-ray showed there may be an early infiltrate in the right side although not convinced infiltrate he is low lobar pneumonia. Patient was having cough congestion and sore throat. Patient is presently on 2 L of oxygen Review of Systems REVIEW OF SYSTEMS: CONSTITUTIONAL: No fever, no malaise, no fatigue. HEENT: No recent visual problems or hearing problems. Denied any sore throat. CARDIOVASCULAR: No chest pain, orthopnea, PND, no palpitations, no syncope. PULMONARY: As mentioned in HPI GASTROINTESTINAL: No diarrhea, no nausea, no vomiting, no abdominal pain. NEUROLOGICAL: No headaches, no weakness, no numbness. HEMATOLOGICAL: Denies any bleeding or petechiae. GENITOURINARY: Denies any burning micturition, frequency, or urgency. MUSCULOSKELETAL/RHEUMATOLOGICAL: Denies any joint pain, swelling, or any muscle pain. ENDOCRINE: Denies any polyuria or polydipsia. The rest of the 14-point review of systems is negative. Past Medical History Past Medical History: Asthma History of Any Multi-Drug Resistant Organisms: None Reported Additional Past Surgical History / Comment(s): katie. carpal tunnel release, left excisional breast biopsy benign, right breast biopsy Past Psychological History: No Psychological Hx Reported Smoking Status: Former smoker Past Alcohol Use History: Occasional Past Drug Use History: None Reported Medications and Allergies Home Medications Medication Instructions Recorded Confirmed Type Budesonide-Formot 160-4.5 Mcg 2 puff INHALATION RT-BID 12/30/19 07/01/20 History [Symbicort 160-4.5 Mcg Inhaler] Ibandronate Sodium [Boniva] 150 mg PO QMONTH 12/30/19 07/01/20 History Albuterol Inhaler [Ventolin Hfa 2 puff INHALATION RT-Q4H PRN 01/11/20 07/01/20 History Inhaler] Albuterol Nebulized [Ventolin 2.5 mg INHALATION RT-Q6H PRN 01/11/20 07/01/20 History Nebulized] Acetaminophen [Tylenol 8 Hour] 650 mg PO Q8H PRN 07/01/20 07/01/20 History Azithromycin [Zithromax Z-pack (6 See Taper PO DAILY 07/01/20 07/01/20 History tabs)] Benzonatate [Benzonatate Perle] 200 mg PO TID 07/01/20 07/01/20 History Cefpodoxime Proxetil [Vantin] 200 mg PO Q12HR 07/01/20 07/01/20 History Ibuprofen [Motrin Ib] 200 mg PO Q8H PRN 07/01/20 07/01/20 History predniSONE [Deltasone] 20 mg PO BID 07/01/20 07/01/20 History Allergies Allergy/AdvReac Type Severity Reaction Status Date / Time clindamycin Allergy Anaphylaxis Verified 07/01/20 10:07 Physical Exam Vitals: Vital Signs Temp Pulse Resp BP Pulse Ox 07/01/20 13:39 126 H 16 147/81 99 07/01/20 13:20 102 F H 07/01/20 10:30 101 H 18 123/69 07/01/20 10:00 107 H 18 130/85 93 L 07/01/20 09:30 104 H 16 133/85 92 L 07/01/20 09:00 110 H 15 131/85 92 L 07/01/20 08:33 124 H 24 07/01/20 07:31 100.8 F H 146 H 24 153/91 98 Intake and Output 07/01/20 07/01/20 07/01/20 06:59 14:59 22:59 Other: Weight 65.771 kg PHYSICAL EXAMINATION: GENERAL: The patient is alert and oriented x3, not in any acute distress. Well developed, well nourished. HEENT: Pupils are round and equally reacting to light. EOMI. No scleral icterus. No conjunctival pallor. Normocephalic, atraumatic. No pharyngeal erythema. No thyromegaly. CARDIOVASCULAR: S1 and S2 present. No murmurs, rubs, or gallops. Tachycardic. PULMONARY: Chest is clear to auscultation, no wheezing or crackles. ABDOMEN: Soft, nontender, nondistended, normoactive bowel sounds. No palpable organomegaly. MUSCULOSKELETAL: No joint swelling or deformity. EXTREMITIES: No cyanosis, clubbing, or pedal edema. NEUROLOGICAL: Gross neurological examination did not reveal any focal deficits. SKIN: No rashes. Results CBC & Chem 7: 07/01/20 08:20 07/01/20 08:20 Labs: Abnormal Lab Results - Last 24 Hours (Table) 07/01/20 07/01/20 07/01/20 Range/Units 08:20 08:20 08:20 Lymphocytes # 0.7 L (1.0-4.8) k/uL Glucose 113 H (74-99) mg/dL C-Reactive Protein 47.3 H (<10.0) mg/L Coronavirus (PCR) Detected A (Not Detectd) Assessment and Plan Plan: -Coumadin 19 infection/pneumonia: She feels short of breath and with hypoxic. Patient was started on Decadron infectious disease will be consulted will be started on Lovenox d-dimer is not elevated. will be started on inhalational treatments. -Asthma with mild acute exacerbation: Patient will be continued on steroids and inhalational treatments as mentioned above -The tachycardia secondary to fever. Continue with IV fluids. Patient will be discharged today with instructions to come back to the hospital if she gets more short of breath.
[2020-07-01] MEDS: dexAMETHasone 2 MG TAB PO SCH (15:20)
[2020-07-01] MEDS: BENZONATATE 100 MG CAP PO SCH ×2 (15:20→22:18)
[2020-07-01] MEDS: ZINC SULFATE 220 MG CAP PO SCH (16:42)
[2020-07-01] MEDS: ONDANSETRON 4 MG/2 ML VIAL IVP PRN (18:20)
[2020-07-01] MEDS: SYMBICORT 160-4.5 MCG INHALER INHALATION SCH (21:09)
[2020-07-01] MEDS: FAMOTIDINE 20 MG TAB PO SCH (22:18)
--- NOTE | 2020-07-02 05:52 | CONS ---
CONSULTATION DATE OF SERVICE: 07/01/2020 REASON FOR CONSULTATION: COVID-19 pneumonia. HISTORY OF PRESENT ILLNESS: The patient is a 65-year-old female with a past medical history significant for asthma in this patient who has been recently diagnosed with COVID-19 and is admitted at this facility. The patient was also diagnosed with COVID-19 infection on and the patient was advised antibiotic and steroids. However, the patient has been complaining of persistent fever since the patient had been diagnosed with COVID-19 with a daily spike of fever. Also complaining of feeling weak, tired, no energy and is complaining of increasing shortness of breath and chest tightness. The patient has been using her nebulizer without significant improvement. The patient did have a cough, which is moderate intensity but not bringing up any sputum. No nausea, no vomiting. No abdominal pain. Did have some diarrhea. With these symptoms, the patient was evaluated by the ER physician. On arrival to the ER, the patient did have fever of 102 degrees Fahrenheit. She was tachycardic. Initially saturating at 98% to 92% on room air, subsequent placed on 2 L and sats currently at 96% to 97%. The patient did have a normal white count with lymphopenia. D-dimer was negative. Liver enzymes are normal. CRP is 47.3. Procalcitonin normal. Influenza PCR was negative. Young PCR came back positive. Patient did have a chest x-ray, which did show some increase in density in right middle lung base with concern for developing infiltrate. The patient was started dexamethasone, Lovenox, zinc sulfate. Infectious Disease was consulted for further management. REVIEW OF SYSTEMS: Positive points have been mentioned in HPI. Rest of the systems are negative. PAST MEDICAL HISTORY: Asthma. PAST SURGICAL HISTORY: Bilateral carpal tunnel release, left breast excisional biopsy and right breast biopsy. SOCIAL HISTORY: Remote history of smoking. Occasionally drinks. No drug use. She is , lives with who has also been diagnosed with COVID-19 and admitted to the hospital. FAMILY HISTORY: No pertinent findings were noticed. ALLERGIES: Allergies to CLINDAMYCIN. MEDICATIONS: Medications include the patient is currently on Tylenol, Ventolin, Zithromax, Tessalon Perles, Symbicort, dexamethasone, Lovenox, Pepcid, Zofran, and zinc sulfate. PHYSICAL EXAMINATION: Blood pressure 144/84, pulse of 100, temperature 98.5, T-max is 102. She is 97% on 2 L nasal cannula. General description is a middle-aged female lying in bed in no distress. No tachypnea or accessory muscles of respiration use. HEENT: Examination shows no pallor or scleral icterus. Oral mucous membrane is dry. No pharyngeal erythema or thrush. NECK: Trachea central. No thyromegaly. LUNGS: Unlabored breathing, decreased intensity of breath sounds. Occasional wheeze. HEART: S1, S2. Regular rate and rhythm. ABDOMEN: Soft, no tenderness. EXTREMITIES: No edema of feet. SKIN EXAMINATION: No rash or masses palpable. NEUROLOGIC: The patient is awake, alert, oriented x3. Mood and affect normal. LABS: Hemoglobin is 14.5, white count 8.0, BUN of 16, creatinine 0.74. Liver enzymes are normal. CRP is 47.3. DIAGNOSTIC IMPRESSION AND PLAN: Patient admitted to the hospital with increasing shortness of breath, cough, fever with evidence of pulmonary infiltrate, elevated CRP, likely secondary to acute COVID-19 infection. This patient's diagnosed with a similar illness. PLAN: 1. We will continue the patient on Lovenox, dexamethasone, however, add Zithromax. 2. Droplet isolation and respiratory support. 3. If the patient did show overall improvement with the current treatment, will be continued. If any worsening, we will add remdesivir. 4. We will follow on clinical condition and further adjust medication if needed. Thank you for this consultation. Will follow this patient along with you. MMODL / IJN: [id number] /
[2020-07-02] MEDS: SYMBICORT 160-4.5 MCG INHALER INHALATION SCH ×2 (08:35→19:14)
[2020-07-02] MEDS: BENZONATATE 100 MG CAP PO SCH ×3 (09:12→20:12)
[2020-07-02] MEDS: ACETAMINOPHEN TAB 325 MG TAB PO PRN ×3 (09:13→23:31)
[2020-07-02] MEDS: AZITHROMYCIN 500 MG TAB PO SCH (09:13)
[2020-07-02] MEDS: FAMOTIDINE 20 MG TAB PO SCH ×2 (09:13→20:12)
[2020-07-02] MEDS: ENOXAPARIN 40 MG/0.4 ML SYRINGE SQ SCH (09:13)
[2020-07-02] MEDS: dexAMETHasone 2 MG TAB PO SCH (10:40)
[2020-07-02] MEDS: ZINC SULFATE 220 MG CAP PO SCH (10:41)
[2020-07-02] MEDS: ONDANSETRON 4 MG/2 ML VIAL IVP PRN (12:28)
--- NOTE | 2020-07-02 13:02 | XR ---
EXAMINATION TYPE: XR chest 1V portable DATE OF EXAM: 07/02/2020 HISTORY: Shortness of breath. COMPARISON: 07/01/2020 TECHNIQUE: Single view of the chest is submitted. FINDINGS: Demonstrated are scattered senescent parenchymal change. Increased density right lower lobe may reflect developing pneumonia. Correlate clinically progress st udies are recommended. The heart is stable. Hilar and mediastinal structures are within normal limits. Degenerative changes are seen of the dorsal spine. IMPRESSION: 1. Increased density right lower lobe may reflect developing pneumonia. Correlate clinically progres s studies are recommended.
--- NOTE | 2020-07-02 14:51 | P.PN ---
Subjective Progress Note Date: 07/02/20 Patient is a 41-year-old the female came in with the fever. Patient's symptoms started about 3-4 days ago. Patient does have history of asthma patient was hypoxic with the saturations of around the 84-88% at home because of which patient came to the hospital. Patient is bit tachycardic now because of the fever. Patient is still having fevers patient that is already on prednisone, antibiotics. Chest x-ray showed there may be an early infiltrate in the right side although not convinced infiltrate he is low lobar pneumonia. Patient was having cough congestion and sore throat. Patient is presently on 2 L of oxygen 07/02/2020 Patient seen and evaluated today continuing to have intermittent fevers and currently is 103.1. She also continues to have shortness of breath and currently maintained on 2-3 L of oxygen via nasal cannula. She does have a history of asthma and continues to use her albuterol and Symbicort inhalers. Patient is maintained on oral antibiotics along with dexamethasone. Patient is Covid positive and infectious disease is following. Repeat chest x-ray today shows an increased density in the right lower lobe. Discussed with nursing staff about weaning off oxygen and monitoring vital signs. Review of systems: Constitutional: reports fatigue, fever, and chills Cardiovascular: No reports of chest pain or palpitations Respiratory: reports shortness of breath and occasional cough GI: Reports mild nausea, with no reports of vomiting, or diarrhea : No reports of dysuria or retention Neurovascular: No reports of weakness or numbness All medications have been reviewed Objective - Vital Signs Vital signs: Vital Signs Temp 98.4 F 07/02/20 13:00 Pulse 110 H 07/02/20 13:00 Resp 16 07/02/20 13:00 BP 127/76 07/02/20 13:00 Pulse Ox 96 07/02/20 13:00 Intake & Output 07/01/20 07/02/20 07/02/20 18:59 06:59 18:59 Intake Total 600 800 Balance 600 800 Weight 65.771 kg 65.771 kg Intake: Oral 600 800 Other: Voiding Method Toilet # Voids 2 2 - Exam GENERAL: The patient is alert and oriented x3, not in any acute distress. Well developed, well nourished. HEENT: Pupils are round and equally reacting to light. EOMI. No scleral icterus. No conjunctival pallor. Normocephalic, atraumatic. No pharyngeal erythema. No thyromegaly. CARDIOVASCULAR: S1 and S2 present. No murmurs, rubs, or gallops. Tachycardic. PULMONARY: Chest is clear to auscultation, no wheezing or crackles. Mild exertional dyspnea noted with conversation ABDOMEN: Soft, nontender, nondistended, normoactive bowel sounds. No palpable organomegaly. MUSCULOSKELETAL: No joint swelling or deformity. EXTREMITIES: No cyanosis, clubbing, or pedal edema. NEUROLOGICAL: Gross neurological examination did not reveal any focal deficits. SKIN: No rashes. - Labs CBC & Chem 7: 07/01/20 08:20 07/01/20 08:20 Labs: Microbiology - Last 24 Hours (Table) 07/01/20 08:20 Blood Culture - Preliminary Blood No Growth after 24 hours Assessment and Plan Assessment: -Covid 19 infection/pneumonia: Continues to be dyspneic with periods of hypoxia when attempting to wean off oxygen. Discussed with nursing staff about continu ing to wean oxygen as she does not normally use oxygen at home. Maintained on Decadron infectious disease following. Patient continues on oral Zithromax and inhalers in the form of albuterol and Symbicort -Asthma with mild acute exacerbation: Patient will be continued on steroids and inhalational treatments as mentioned above -Sinus tachycardia secondary to fever. Continue with IV fluids. Plan: Continue current medications in the form of inhalers, dexamethasone, azithromycin, and zinc. Infectious disease is following. Continue to monitor for fevers and treat accordingly. Discussed with nursing staff along with patient about weaning off oxygen she does not normally use this at home. D iscussed with patient at length about discharge planning needs and the importance of continuing to quarantine once discharged. Spouse is currently being treated for Covid 19 as well. Further recommendations to follow. Anticipate discharge in 24 hours.
[2020-07-03 06:17] VITALS: BP 132/81
[2020-07-03 06:21] LABS: Basophils % (A) 0 %; Eosinophils % (A) 0 %; HCT 42.5 % (34.0-46.0); HGB 14.3 gm/dL (11.4-16.0); Lymphocytes # (A) 0.9 k/uL (1.0-4.8); Lymphocytes % (A) 11 %; MCH 29.2 pg (25.0-35.0); MCHC 33.5 g/dL (31.0-37.0); MCV 87.1 fL (80.0-100.0); Mean Platelet Volume 7.8; Monocytes # (A) 0.3 k/uL (0-1.0); Monocytes % (A) 3 %; Neutrophils # (A) 6.7 k/uL (1.3-7.7); Neutrophils % (A) 85 %; Platelet Count 165 k/uL (150-450); RBC 4.88 m/uL (3.80-5.40); RDW 13.4 % (11.5-15.5); WBC 7.9 k/uL (3.8-10.6)
[2020-07-03] MEDS: ACETAMINOPHEN TAB 325 MG TAB PO PRN (06:21)
[2020-07-03] MEDS: SYMBICORT 160-4.5 MCG INHALER INHALATION SCH (07:24)
[2020-07-03] MEDS: AZITHROMYCIN 500 MG TAB PO SCH (09:13)
[2020-07-03] MEDS: BENZONATATE 100 MG CAP PO SCH (09:13)
[2020-07-03] MEDS: dexAMETHasone 2 MG TAB PO SCH (09:13)
[2020-07-03] MEDS: FAMOTIDINE 20 MG TAB PO SCH (09:13)
[2020-07-03] MEDS: ZINC SULFATE 220 MG CAP PO SCH (09:14)
[2020-07-03] MEDS: ENOXAPARIN 40 MG/0.4 ML SYRINGE SQ SCH (09:14)
[2020-07-03 09:25] VITALS: PULSE 110; RESP 22; TEMP 99.6
[2020-07-03 09:33] LABS: African American GFR (CKD) 90.3 (60.0-200.0); Albumin 4.1 g/dL (3.80-4.90); Albumin/Globulin Ratio 1.95 (1.60-3.17); BUN/Creat Ratio 23.75 Ratio (12.00-20.00); C Reactive Protein 9.2 mg/dL (0.0-0.8); Globulin 2.1 g/dL (1.6-3.3); Non-African American GFR(CKD) 77.9 (60.0-200.0); Potassium 4.2 mmol/L (3.5-5.5); Total Bilirubin 0.4 mg/dL (0.3-1.2); Total Protein 6.2 g/dL (6.2-8.2)
--- NOTE | 2020-07-03 14:13 | PN ---
PROGRESS NOTE DATE OF SERVICE: 07/03/2020 REASON FOR FOLLOWUP: COVID-19 infection. INTERVAL HISTORY: The patient did spike a fever this morning of 102.3 degrees Fahrenheit. However, the patient is afebrile since then. The patient is currently breathing comfortably on room air, saturating 95%. The patient currently has been discharged by the admitting team. She is all dressed up sitting waiting for a ride back home. Did mention overall she is feeling better. No nausea, no vomiting. No abdominal pain, no diarrhea. PHYSICAL EXAMINATION: Blood pressure is 132/81 with a pulse of 110, temperature 99.6. He is 95% on room air. General description is a middle-aged female up in the chair in no distress. RESPIRATORY SYSTEM: Unlabored breathing, decreased breath sounds in the base, with no wheeze. HEART: S1, S2. Regular rate and rhythm. ABDOMEN: Soft, no tenderness. LABS: Hemoglobin 14.1, white count 7.9, creatinine 0.8. is down to 9.2. DIAGNOSTIC IMPRESSION AND PLAN: Patient with acute COVID-19 pneumonia in this patient who seemed to have shown overall clinical improvement. She did spike a fever this morning and She is afebrile; however, the patient wants to go home. Discharge medications being prescribed with current Zosyn, zinc and vancomycin to continue. Advised if any recurrence of shortness of breath or fever need to come back to the hospital right away. MMODL / IJN: [id number] /
--- NOTE | 2020-07-03 16:01 | P.DS ---
Providers Date of admission: 07/01/20 10:16 Expected date of discharge: 07/03/20 Attending physician: Jaz aKthleen Consults: 07/01/20 14:12 Consult Physician Routine Consulting Provider: Sallie Stein Consult Reason/Comments: Covid Do you want consulting provider notified?: Yes Primary care physician: Keith Nava [facility] Course: Final diagnosis -Covid 19 infection/pneumonia -Asthma with mild acute exacerbation -Sinus tachycardia secondary to fever. Discharge disposition Patient is being discharged in a stable condition with guarded prognosis to home. Patient will follow-up with Dr. Nava upon discharge. Patient will continue with a short course of oral antibiotics in the form of Zithromax along with dexamethasone and zinc supplements to complete the course. Patient provided prescription for repeat Covid testing. Total time taken is 35 minutes. History of present illness This is a 65-year-old female who was recently admitted with fever, hypoxia, tachycardia and was positive for Covid 19 pneumonia and was being closely monitored. Patient was started on Zithromax along with dexamethasone and zinc and will continue in the outpatient setting to complete the course. She continued to require oxygen as she was de-satting into the low mid 80s on room air. Patient is currently 94% on room air. Patient does have a history of asthma and will continue with albuterol and Symbicort inhalers. Instructed to follow-up with primary care provider in the outpatient setting. Patient also given a prescription for repeat Covid testing in the next 10 days in the event she needs it for work. Patient instructed to continue quarantine for an additional 10-14 days and until symptom-free for at least 3 days. is currently quarantine with positive Covid 19 as well. She continues to have low- grade to moderate fevers and instructed to continue to monitor closely and treat accordingly with Tylenol and Motrin alternating. Currently no reports of chest pain, no worsening shortness of breath, or palpitations. Patient is afebrile. No reports of nausea or vomiting and patient is tolerating diet. On exam vital signs are stable. Temp is 99.6F, pulse is 110, respirations are 22, blood pressure is 132/81, oxygen saturation is 95% on room air. Cardio S1, S2 are muffled. Respiratory shows diminished breath sounds at the bases with a few scattered rhonchi noted. Abdomen is soft and nontender. Nervous system shows no focal deficits. Please refer to medication reconciliation sheet for a list of medications. Patient Condition at Discharge: Stable Plan - Discharge Summary New Discharge Prescriptions: New dexAMETHasone [Hexadrol] 6 mg PO DAILY 6 Days #6 tab Zinc Sulfate [Orazinc] 220 mg PO DAILY cap Azithromycin [Zithromax] 500 mg PO DAILY 3 Days #3 tab Ondansetron Odt [Zofran Odt] 4 mg PO Q8HR PRN #10 tab PRN Reason: Nausea Continue Ibandronate Sodium [Boniva] 150 mg PO QMONTH Budesonide-Formot 160-4.5 Mcg [Symbicort 160-4.5 Mcg Inhaler] 2 puff INHALATION RT-BID Albuterol Nebulized [Ventolin Nebulized] 2.5 mg INHALATION RT-Q6H PRN PRN Reason: Shortness Of Breath Ibuprofen [Motrin Ib] 200 mg PO Q8H PRN PRN Reason: Fever Cefpodoxime Proxetil [Vantin] 200 mg PO Q12HR Benzonatate [Benzonatate Perle] 200 mg PO TID Acetaminophen [Tylenol 8 Hour] 650 mg PO Q8H PRN PRN Reason: Pain Or Fever > 100.5 Albuterol Inhaler [Ventolin Hfa Inhaler] 2 puff INHALATION RT-Q4H PRN 30 Days #1 puff PRN Reason: Shortness Of Breath Discontinued predniSONE [Deltasone] 20 mg PO BID Azithromycin [Zithromax Z-pack (6 tabs)] See Taper PO DAILY Discharge Medication List Budesonide-Formot 160-4.5 Mcg [Symbicort 160-4.5 Mcg Inhaler] 2 puff INHALATION RT-BID 12/30/19 [History] Ibandronate Sodium [Boniva] 150 mg PO QMONTH 12/30/19 [History] Albuterol Nebulized [Ventolin Nebulized] 2.5 mg INHALATION RT-Q6H PRN 01/11/20 [History] Acetaminophen [Tylenol 8 Hour] 650 mg PO Q8H PRN 07/01/20 [History] Benzonatate [Benzonatate Perle] 200 mg PO TID 07/01/20 [History] Cefpodoxime Proxetil [Vantin] 200 mg PO Q12HR 07/01/20 [History] Ibuprofen [Motrin Ib] 200 mg PO Q8H PRN 07/01/20 [History] Albuterol Inhaler [Ventolin Hfa Inhaler] 2 puff INHALATION RT-Q4H PRN 30 Days #1 puff 07/03/20 [Rx] Azithromycin [Zithromax] 500 mg PO DAILY 3 Days #3 tab 07/03/20 [Rx] Ondansetron Odt [Zofran Odt] 4 mg PO Q8HR PRN #10 tab 07/03/20 [Rx] Zinc Sulfate [Orazinc] 220 mg PO DAILY cap 07/03/20 [Rx] dexAMETHasone [Hexadrol] 6 mg PO DAILY 6 Days #6 tab 07/03/20 [Rx] Follow up Appointment(s)/Referral(s): Keith Nava DO [Primary Care Provider] - 3 Days (office closed for lunch, call for appointment) Ambulatory/Diagnostic Orders: Coronavirus SARS CoV-2 by PCR [LAB.AMB] Time Frame: 10 Days, Location: None Selected Patient Instructions/Handouts: Viral Pneumonia (DC) Activity/Diet/Wound Care/Special Instructions: Activity Limited until follow-up Continue with antibiotics and dexamethasone to complete the course Continue to quarantine for an additional 10-14 days and until symptom-free for 3 days Continue to monitor fever and treat with Tylenol and Motrin alternating Encourage fluids and rest Continue current diet Follow-up with primary care provider upon discharge Discharge Disposition: HOME SELF-CARE
== END 2020-07-03 13:17 | disposition home or self-care (01) | DRG 177 ==
LOC: EC 07:29 → 4SSUR 10:16 → 6NMEDSUR 20:55
PROVIDERS: ADMIT Internal Medicine; ATTEND Internal Medicine
DX: U07.1 COVID-19 (principal); J12.89 Other viral pneumonia; J45.901 Unspecified asthma with (acute) exacerbation; E86.0 Dehydration; D72.810 Lymphocytopenia; R09.02 Hypoxemia; R19.7 Diarrhea, unspecified; Z79.51 Long term (current) use of inhaled steroids; Z79.899 Other long term (current) drug therapy; Z87.891 Personal history of nicotine dependence; Z87.39 Personal history of other diseases of the musculoskeletal system and connective tissue; Z98.890 Other specified postprocedural states; Z88.1 Allergy status to other antibiotic agents
CPT/HCPCS: 36415; 71045; 80053; 82728; 83605; 83615; 83735; 84145; 85025; 85379; 85610; 85730; 86140; 87040; 87502; 87635; 93005; 94640; 96360; 96361; 96365; 96366; 96375; 99285

== ENCOUNTER → 2020-07-20 | Outpatient (CLI) | payer BC ==
--- NOTE | 2020-07-20 15:26 | XR ---
EXAMINATION TYPE: XR chest 2V DATE OF EXAM: 07/20/2020 COMPARISON: 07/02/2020 INDICATION: Cough,: TECHNIQUE: Frontal and lateral views of the chest are obtained. FINDINGS: The heart size is normal. The pulmonary vasculature is normal. Patchy infiltrates are increasing over the bilateral lung bases. Findings can be compatible with atyp ical pneumonia.. IMPRESSION: 1. Increasing bibasilar infiltrates.
== END | disposition home or self-care (01) ==
LOC: RADXRYALE 14:51
PROVIDERS: ATTEND Physician Assistant Medical
DX: R91.8 Other nonspecific abnormal finding of lung field (principal); R05 Cough; U07.1 COVID-19
CPT/HCPCS: 71046

== ENCOUNTER → 2020-07-26 | Outpatient (CLI) | payer BC ==
--- NOTE | 2020-07-26 09:08 | XR ---
EXAMINATION TYPE: XR chest 2V DATE OF EXAM: 07/26/2020 COMPARISON: Chest x-ray 6 days ago and chest x-ray July 02, 2020 HISTORY: History of cold 19 pneumonia 1 month ago with persistent cough and shortness of breath TECHNIQUE: Frontal and lateral views of the chest are obtained. FINDINGS: The osseous structures remain intact. Cardiac silhouette size is stable and within normal limits. Parenchymal opacities in the periphery of the mid to lower lungs bilaterally unchanged from m ost recent x-ray has more fibrotic appearance versus older x-rays. Upper lungs remain clear. No pleur al effusion or pneumothorax seen bilaterally. IMPRESSION: As above. No significant change from most recent x-ray. Suspect peripheral fibrotic johnson ges in the mid to lower lungs have developed related to recent infection. Consider pulmonology doctor referral or follow-up to assess for restrictive lung disease related to fibrosis.
== END | disposition home or self-care (01) ==
LOC: RADXRYALE 08:47
PROVIDERS: ATTEND Physician Assistant Medical
DX: R91.8 Other nonspecific abnormal finding of lung field (principal); J84.10 Pulmonary fibrosis, unspecified
CPT/HCPCS: 71046

== ENCOUNTER → 2020-07-30 | Outpatient (CLI) | payer BC ==
--- NOTE | 2020-07-30 15:06 | MM ---
Reason for exam: additional evaluation requested from prior study. Last mammogram was performed 10 months ago. History: Patient is postmenopausal. Family history of breast cancer in paternal aunt. Benign MG stereo VAD BX LT of the left breast, January 20, 2020. Benign stereotactic core biopsy of the right breast, November 04, 2004. Core biopsy of the right breast. Excisional biopsy of the left breast. Took hormonal contraceptives for 15 years. Physical Findings: Nurse did not find any significant physical abnormalities on exam. MG 3D Diag Mammo W/Cad LT CC and MLO view(s) were taken of the left breast. Prior study comparison: October 13, 2019, left breast MG 3d work up w/cad LT. October 05, 2019, bilateral MG 3d screening mammo w/cad. There are scattered fibroglandular densities. Previous mammotome biopsy in the left breast. These results were verbally communicated with the patient and result sheet given to the patient on 07/30/20. ASSESSMENT: Benign, BI-RAD 2 RECOMMENDATION: Return to routine screening mammogram schedule for both breasts. Back on schedule for September 2020.
== END | disposition home or self-care (01) ==
LOC: RADMAMWWP 13:28
PROVIDERS: ATTEND Surgery
DX: R92.8 Other abnormal and inconclusive findings on diagnostic imaging of breast (principal)
CPT/HCPCS: 77061; 77065

== ENCOUNTER → 2020-09-03 | Outpatient (CLI) | payer BC ==
--- NOTE | 2020-09-03 08:27 | CT ---
EXAMINATION TYPE: CT chest wo con DATE OF EXAM: 09/03/2020 COMPARISON: Chest x-ray July 26, 2020 and older x-rays HISTORY: continued shortness of breath post covid infection, interstitial lung disease CT DLP: 244 mGycm. Automated Exposure Control for Dose Reduction was Utilized. TECHNIQUE: CT scan of the thorax is performed without IV contrast. FINDINGS: LUNGS: Background mild underlying emphysematous change redemonstrated. Background moderate pulmonary fibrotic changes in the mid to lower lungs greatest in the periphery is now present. There are addit ional mild to moderate areas of groundglass opacity and reticulation multifocal throughout the right upper lobe. Some areas of ground glass opacity in the lower lungs also are present. No pleural effusi on or pneumothorax seen. No suspicious masses or consolidation. MEDIASTINUM: Lack of IV contrast is noted to limit evaluation for mediastinal and especially hilar ad enopathy. There are no definitive greater than 1 cm hilar or mediastinal lymph nodes. No cardiomega ly or pericardial effusion is seen. There is left-sided arch with aberrant right brachiocephalic chelsea ry running posterior to the esophagus, normal variant. OTHER: Mild/moderate multilevel spurring in the spine. IMPRESSION: Fairly moderate pulmonary fibrotic changes in the mid to lower lungs bilaterally with add itional involvement in the right upper lobe new from 2018 study presumed product of covid-19 infectio n.
== END | disposition home or self-care (01) ==
LOC: RADCTMAIN 07:40
PROVIDERS: ATTEND Internal Medicine Pulmonary Disease
DX: J84.10 Pulmonary fibrosis, unspecified (principal)
CPT/HCPCS: 71250

== ENCOUNTER → 2021-04-18 | Outpatient (CLI) | payer BC ==
--- NOTE | 2021-04-18 16:18 | XR ---
EXAMINATION TYPE: XR chest 2V DATE OF EXAM: 04/18/2021 COMPARISON: Chest x-ray July 26, 2020 and older x-rays. CT chest September 03, 2020 HISTORY: History of covid with chest tightness and cough TECHNIQUE: Frontal and lateral views of the chest are obtained. FINDINGS: There is mild chronic emphysematous and moderate scattered pulmonary fibrotic changes bila terally redemonstrated, lateral greater in the lower lungs. No new focal airspace opacity, pleural ef fusion, or pneumothorax seen bilaterally The cardiac silhouette size is stable and within normal limi ts. The osseous structures are intact. IMPRESSION: Chronic changes without new acute pulmonary process.
== END | disposition home or self-care (01) ==
LOC: RADXRYALE 15:47
PROVIDERS: ATTEND Physician Assistant Medical
DX: J43.9 Emphysema, unspecified (principal); J84.10 Pulmonary fibrosis, unspecified; Z86.16 Personal history of COVID-19
CPT/HCPCS: 71046

== ENCOUNTER → 2021-06-14 | Outpatient (CLI) | payer MEDICARE ==
--- NOTE | 2021-06-17 11:51 | MM ---
Reason for exam: screening (asymptomatic). Last mammogram was performed 10 months ago. History: Patient is postmenopausal. Family history of breast cancer in paternal aunt. Benign MG stereo VAD BX LT of the left breast, January 20, 2020. Benign stereotactic core biopsy of the right breast, November 04, 2004. Core biopsy of the right breast. Excisional biopsy of the left breast. Took hormonal contraceptives for 15 years. Physical Findings: A clinical breast exam by your physician is recommended on an annual basis and results should be correlated with mammographic findings. MG Screening Mammo w CAD Bilateral CC and MLO view(s) were taken. XCCL view(s) were taken of the right breast. Prior study comparison: October 05, 2019, bilateral MG 3d screening mammo w/cad. September 23, 2018, bilateral MG 3d screening mammo w/cad. July 15, 2016, bilateral MG screening mammo w CAD. There are scattered fibroglandular densities. No significant changes when compared with prior studies. ASSESSMENT: Benign, BI-RAD 2 RECOMMENDATION: Routine screening mammogram of both breasts in 1 year.
== END | disposition home or self-care (01) ==
LOC: RADMAMWWP 07:25
PROVIDERS: ATTEND Family Medicine
DX: Z12.31 Encounter for screening mammogram for malignant neoplasm of breast (principal)
CPT/HCPCS: 77067

== ENCOUNTER → 2022-06-16 | Outpatient (CLI) | payer MEDICARE ==
--- NOTE | 2022-06-17 17:02 | MM ---
Reason for Exam: Screening (asymptomatic). Last screening mammogram was performed 12 month(s) ago. Patient History: Menarche at age 13. First Full-Term at age 25. Postmenopausal. Patient used Hormonal Contraceptives for 15 years. Core Biopsy on the Right side. Excisional Biopsy on the Left side. 01/20/2020, Benign Core Biopsy on the left side. 11/04/2004, Benign Stereotactic Core Biopsy on the right side. Paternal aunt had breast cancer. Risk Values: Liliane 5 year model risk: 2.3%. NCI Lifetime model risk: 8.0%. Prior Study Comparison: 10/13/2019 Left Diagnostic Mammogram, [facility]. 07/30/2020 Left Diagnostic Mammogram, [facility]. 06/14/2021 Bilateral Screening Mammogram, [facility]. Tissue Density: There are scattered fibroglandular densities. Findings: Analyzed By CAD. Core markers within left breast. No significant interval change. No suspicious groups of microcalcifications, spiculated or lobular masses, architectural distortion or other secondary signs of malignancy are mammographically apparent. Overall Assessment: Benign, BI-RAD 2 Management: Screening Mammogram of both breasts in 1 year. A negative mammogram report should not preclude additional follow up of suspicious palpable abnormalities. Patient should continue monthly self breast exam. A clinical breast exam by your physician is recommended on an annual basis and results should be correlated with mammographic findings. Electronically signed and approved by: Tahir Melton D.O. Radiologis
== END | disposition home or self-care (01) ==
LOC: RADMAMWWP 07:26
PROVIDERS: ATTEND Family Medicine
DX: Z12.31 Encounter for screening mammogram for malignant neoplasm of breast (principal); Z78.0 Asymptomatic menopausal state; Z80.3 Family history of malignant neoplasm of breast
CPT/HCPCS: 77063; 77067

== ENCOUNTER → 2022-11-25 | Outpatient (CLI) | payer MEDICARE ==
--- NOTE | 2022-11-25 18:40 | CA ---
Exercise Stress Test Report Name: Joy Koo Exam Date: 11/25/2022 09:18 Exam Location: [facility] Ht (in): 62 Wt (lb): 140 BSA: 1.64 Ordering Phys: Keith Yost DO Referring Phys: keith yost,, Technologist: Don Chavez Age: 67 Gender: F : 1955 Procedure CPT: Indications: R07.9, R00.2, E78.2 ICD-10 Codes: Patient History: Palpitations Medications: Meds past 24 hrs: Pretest Chest Pain: STRESS TEST Ritchie Protocol Exercise Duration (min:sec): 07:[address] Depressions (mm): Angina Score: Lima Score: Resting HR (bpm): 81 Peak HR (bpm): 143 Resting BP (mmHg): 132 / 77 Peak BP (mmHg): 160 / 72 MPHR: 154 Target HR: 131 % MPHR: 93 METS: 8.9 Total Dose: Peak Dose: Atropine: Double Product: 18272 BP Response: Stress Termination: TARGET HR REACHED/MAX EXERTION Stress Symptoms: DIFFICULTY IN BREATHING Stress Summary: ECG ANALYSIS Resting ECG: Stress ECG: CONCLUSIONS Baseline heart rate 81 beats a minute, Baseline blood pressure 132/77 mmHg Baseline creatinine EKG showed sinus mechanism with early repolarization abnormality with occasional PVCs of a left bundle branch block morphology Patient exercised on a Ritchie protocol for 7 minutes achieving a peak heart rate of 141 beats a minute. Peak blood pressure 160/72 mmHg There was no procedures for ischemia occasional PVCs are noted No sustained or nonsustained arrhythmias Impression Average exercise capacity No clear-cut ECG evidence for ischemia occasional PVCs noted Dr. Francis Ureña MD (Electronically Signed) Final Date: 25 November 2022 18:39
== END | disposition home or self-care (01) ==
LOC: RADNMMAIN 08:40
PROVIDERS: ATTEND Family Medicine
DX: E78.2 Mixed hyperlipidemia (principal); R07.9 Chest pain, unspecified; R00.2 Palpitations
CPT/HCPCS: 93017

== ENCOUNTER 2023-04-21 08:29 | Day surgery (SDC) | payer MEDICARE ==
[2023-04-16 09:35] VITALS: BMI 24.7
[~2023-04-21 08:29] MED LIST: LACTATED RINGERS 1,000 ML IV SCH; LIDOCAINE 1% (10MG/ML) FOR IV START INTRADERMA PRN
[2023-04-21 09:03] VITALS: TEMP 97.7
[2023-04-21] MEDS ORDERED: PROPOFOL 10 MG/ML 20 ML VIAL IV ONE (09:30)
[2023-04-21] MEDS ORDERED: LIDOCAINE 2% INJ 20 MG/ML (2 ML VIAL) ONE (09:30)
--- NOTE | 2023-04-21 09:32 | P.GSHP ---
History of Present Illness H&P Date: 04/21/23 Chief Complaint: Colon cancer screening 67-year-old female here for colonoscopy. Her last colonoscopy was 5 years ago. No bowel complaints. She has a history of colon cancer in her father. Past Medical History Past Medical History: Asthma, Hypertension History of Any Multi-Drug Resistant Organisms: None Reported Additional Past Surgical History / Comment(s): katie. carpal tunnel release, katie. breast bx Past Anesthesia/Blood Transfusion Reactions: No Reported Reaction Past Psychological History: No Psychological Hx Reported Smoking Status: Former smoker Past Alcohol Use History: Occasional Past Drug Use History: None Reported - Past Family History Mother Family Medical History: Diabetes Mellitus Additional Family Medical History / Comment(s): from a blood clot to the heart Father Family Medical History: Cancer Additional Family Medical History / Comment(s): colon cancer Medications and Allergies Home Medications Medication Instructions Recorded Confirmed Type Budesonide-Formot 160-4.5 Mcg 2 puff INHALATION RT-BID 12/30/19 04/21/23 History [Symbicort 160-4.5 Mcg Inhaler] Albuterol Inhaler [Ventolin Hfa 2 puff INHALATION RT-Q4H PRN 30 07/03/20 04/21/23 Rx Inhaler] Days #1 puff Ferrous Sulfate [Feosol] 325 mg PO Q7DAYS 04/16/23 04/21/23 History Metoprolol Succinate (ER) [Toprol 50 mg PO DAILY 04/16/23 04/21/23 History Xl] Montelukast [Singulair] 10 mg PO DAILY 04/16/23 04/21/23 History Nf-Biotin 1,000 mg PO DAILY 04/16/23 04/21/23 History Nf-Calcium+Vitamin D Dose Unk 2 tab PO DAILY 04/16/23 04/21/23 History Vitamin B Complex 1 each PO DAILY 04/16/23 04/21/23 History Allergies Allergy/AdvReac Type Severity Reaction Status Date / Time clindamycin Allergy Anaphylaxis Verified 04/21/23 08:51 Surgical - Exam Vital Signs Temp Pulse Resp BP Pulse Ox 97.7 F 76 18 141/78 97 04/21/23 09:01 04/21/23 09:01 04/21/23 09:01 04/21/23 09:01 04/21/23 09:01 Physical exam: General: Well-developed, well-nourished HEENT: Normocephalic, sclerae nonicteric Abdomen: Nontender, nondistended Extremities: No edema Neuro: Alert and oriented Assessment and Plan (1) Colon cancer screening Narrative/Plan: Will proceed with colonoscopy at this time. Current Visit: Yes Status: Acute Code(s): Z12.11 - ENCOUNTER FOR SCREENING FOR MALIGNANT NEOPLASM OF COLON SNOMED Code(s): 527358725
--- NOTE | 2023-04-21 09:48 | P.PCN ---
Date of Procedure: 04/21/23 Procedure(s) Performed: PREOPERATIVE DIAGNOSIS: Colon cancer screening POSTOPERATIVE DIAGNOSIS: Diverticulosis PROCEDURE: Colonoscopy ANESTHESIA: MAC SURGEON: Aly Banda M.D. SPECIMENS: None ENDOSCOPIC PROCEDURE: The patient was placed on the endoscopy table in the left decubitus position. The Olympus colonoscope was inserted into the anus and passed under direct visualization to the base of the cecum. The appendiceal orifice was visualized. From that point the scope was slowly withdrawn inspe cting all surfaces carefully. There were no neoplastic inflammatory or polypoid lesions throughout the cecum, ascending, transverse, descending, sigmoid and rectum. There was mild left-sided diverticulosis noted. Digital rectal examination was normal. The patient was taken to the recovery room in stable condition per anesthesia guidelines. RECOMMENDATIONS: Resume diet. Repeat colonoscopy 5 years.
[2023-04-21 10:20] VITALS: BP 118/80; PULSE 88; RESP 20
== END 2023-04-21 10:35 | disposition home or self-care (01) ==
LOC: ORWHC2ENDO 08:29
PROVIDERS: ATTEND Surgery
DX: Z12.11 Encounter for screening for malignant neoplasm of colon (principal); K57.90 Diverticulosis of intestine, part unspecified, without perforation or abscess without bleeding; I10 Essential (primary) hypertension; J45.909 Unspecified asthma, uncomplicated; Z87.891 Personal history of nicotine dependence; Z80.0 Family history of malignant neoplasm of digestive organs; Z88.1 Allergy status to other antibiotic agents; Z79.51 Long term (current) use of inhaled steroids; Z79.810 Long term (current) use of selective estrogen receptor modulators (SERMs); Z79.899 Other long term (current) drug therapy
CPT/HCPCS: J2704; J2001; G0105

== ENCOUNTER → 2023-08-11 | Outpatient (CLI) | payer MEDICARE ==
--- NOTE | 2023-08-12 08:36 | MM ---
Reason for Exam: Screening (asymptomatic). Last mammogram was performed 1 year(s) and 2 month(s) ago. Patient History: Menarche at age 13. First Full-Term at age 25. Postmenopausal. Patient used Hormonal Contraceptives for 15 years. Core Biopsy on the Right side. Excisional Biopsy on the Left side. 01/20/2020, Benign Core Biopsy on the left side. 11/04/2004, Benign Stereotactic Core Biopsy on the right side. Paternal aunt had breast cancer. Risk Values: Liliane 5 year model risk: 2.3%. NCI Lifetime model risk: 7.7%. Prior Study Comparison: 07/30/2020 Left Diagnostic Mammogram, [facility]. 06/14/2021 Bilateral Screening Mammogram, [facility]. 06/16/2022 Bilateral MG 3D screening mammo w/cad, [facility]. Tissue Density: There are scattered fibroglandular densities. Findings: Analyzed By CAD. Bilateral breast biopsy clips. There is no suspicious group of microcalcifications or new suspicious mass. Overall Assessment: Benign, BI-RAD 2 Management: Screening Mammogram of both breasts in [address] [facility] will attempt to contact patient to return for supplemental views and ultrasound if indicated. Patient should continue monthly self-breast exams. A clinical breast exam by your physician is recommended on an annual basis. This exam should not preclude additional follow-up of suspicious palpable abnormalities. Note on Liliane scores and lifetime risk: 1. A Liliane score greater than 3% is considered moderate risk. If this is the case, consider specialist referral to assess eligibility for a risk reducing agent. 2. If overall lifetime risk for the development of breast cancer is 20% or higher, the patient may qualify for future screening with alternating mammogram and breast MRI. Electronically signed and approved by: Hernán Denney DO
== END | disposition home or self-care (01) ==
LOC: RADMAMWWP 07:58
PROVIDERS: ATTEND Family Medicine
DX: Z12.31 Encounter for screening mammogram for malignant neoplasm of breast (principal); Z80.3 Family history of malignant neoplasm of breast; Z78.0 Asymptomatic menopausal state
CPT/HCPCS: 77063; 77067

== ENCOUNTER 2024-03-25 08:30 | Day surgery (SDC) | payer MEDICARE ==
[~2024-03-25 08:30] MED LIST changes: +LACTATED RINGERS 1,000 ML BAG ONE; -LACTATED RINGERS 1,000 ML IV SCH; -LIDOCAINE 1% (10MG/ML) FOR IV START INTRADERMA PRN
[2024-03-25] MEDS ORDERED: PROPOFOL 10 MG/ML 20 ML VIAL IV ONE (08:32)
--- NOTE | 2024-04-15 17:19 | P.PCN ---
Date of Procedure: 03/25/24 Procedure(s) Performed: This an addendum to the procedure that was performed on 03/25/2024 Procedure performed EGD with biopsy Procedure. The scope was advanced into the duodenum. Careful examination was performed. There was mild antral gastritis. Biopsies were done from this area. Small hiatal hernia noted. Patient tolerated the procedure well.
== END 2024-03-25 09:25 ==
LOC: ORWHC2ENDO 08:30
PROVIDERS: ATTEND Internal Medicine Gastroenterology
DX: K21.9 Gastro-esophageal reflux disease without esophagitis
CPT/HCPCS: 43239; 88305

== ENCOUNTER → 2024-08-03 | Outpatient (CLI) | payer MEDICARE ==
[2024-08-03 10:08] VITALS: BP 169/81; PULSE 81; RESP 16; TEMP 97.9
--- NOTE | 2024-08-03 11:05 | P.HPOB ---
History of Present Illness H&P Date: 08/03/24 Chief Complaint: The patient is here for her routine gynecologic exam This is a 69-year-old -0-1-2 with an LMP of 2010. The patient is here to establish with this office. It has been more than 4 years since her last pelvic exam. She is without gynecologic complaints and denies any postmenopausal bleeding. She had her last mammogram done on 08/11/2023 and it was benign. She does have a mammogram scheduled for 08/19/2024. Review of Systems The patient has gained 10 pounds over the last 1-2 years. She denies respiratory, cardiac, or G.I. problems. Past Medical History Past Medical History: Asthma, GERD/Reflux, Hypertension Additional Past Medical History / Comment(s): Environmental allergies. Osteopenia. 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 History of Any Multi-Drug Resistant Organisms: None Reported Additional Past Surgical History / Comment(s): katie. carpal tunnel release, katie. breast bx, EGD, colonoscopy 2020(next after 5yr) Past Anesthesia/Blood Transfusion Reactions: No Reported Reaction Past Psychological History: No Psychological Hx Reported Smoking Status: Former smoker Past Alcohol Use History: Occasional (0-4 drinks per week.) Additional Past Alcohol Use History / Comment(s): Quit smoking in 1997. Past Drug Use History: None Reported Additional History: She has been since 2002. 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 - Past Family History Mother Family Medical History: Diabetes Mellitus, Hypertension, Myocardial Infarction ([place]) Additional Family Medical History / Comment(s): from a blood clot to the heart Father Family Medical History: Cancer Additional Family Medical History / Comment(s): colon cancer. . Gout. Brother(s) Family Medical History: Diabetes Mellitus, Hypertension Medications and Allergies Home Medications Medication Instructions Recorded Confirmed Type Budesonide-Formot 160-4.5 Mcg 2 puff INHALATION RT-BID 12/30/19 08/03/24 History [Symbicort 160-4.5 Mcg Inhaler] Albuterol Inhaler [Ventolin Hfa 2 puff INHALATION RT-Q4H PRN 30 07/03/20 08/03/24 Rx Inhaler] Days #1 puff Ferrous Sulfate [Feosol] 325 mg PO Q7DAYS 04/16/23 08/03/24 History Metoprolol Succinate (ER) [Toprol 50 mg PO DAILY 04/16/23 08/03/24 History Xl] Montelukast [Singulair] 10 mg PO DAILY 04/16/23 08/03/24 History Nf-Biotin 1,000 mg PO DAILY 04/16/23 08/03/24 History Nf-Calcium+Vitamin D Dose Unk 2 tab PO DAILY 04/16/23 08/03/24 History Vitamin B Complex 1 each PO DAILY 04/16/23 08/03/24 History Omeprazole [PriLOSEC] 10 mg PO DAILY 08/03/24 08/03/24 History Allergies Allergy/AdvReac Type Severity Reaction Status Date / Time clindamycin Allergy Anaphylaxis Verified 08/03/24 10:05 Exam Vital Signs Temp Pulse Resp BP Pulse Ox 08/03/24 10:06 97.9 F 81 16 169/81 98 Intake and Output 08/02/24 08/03/24 08/03/24 22:59 06:59 14:59 Other: Weight 67.585 kg Repeat blood pressure 150/85. Height 5 feet 2 inches, weight 149 pounds, BMI 27.3. This is a well-developed well-nourished white female who is alert and oriented times 3 in no acute distress. HEENT: Within normal limits. NECK: Supple without mass or thyromegaly. CHEST AND LUNGS: Clear to auscultation. HEART: Regular rate and rhythm. BREASTS: Are without mass or discharge. There is bilateral nipple inversion. The patient states they have been this way most of her life. AXILLARY EXAM: Negative for adenopathy. BACK: Negative for CVA tenderness. ABDOMEN: Soft, nontender, without palpable masses. PELVIC EXAM: Normal external genitalia with mild to moderate atrophy. Cervix and vagina appear normal with mild atrophy. There is no unusual discharge. There is no evidence of prolapse. The uterus is midposition, nongravid size and nontender. There are no palpable adnexal masses or tenderness. RECTAL EXAM: Rectovaginal exam is negative for mass or tenderness and is negative for occult blood. EXTREMITIES: Nontender. IMPRESSION: 1. 69-year-old menopausal female with normal gynecologic exam. 2. History of osteopenia. 3. Elevated blood pressure with chronic hypertension. PLAN: 1. Pap smear cotest was performed. She denies history of cervical neoplasia and we do not have her documented history for Pap smears so we will continue Pap smears until we have 2 negative Pap smear cotest within a 10-year period. 2. Self breast awareness was discussed with the patient. We have also discussed symptoms associated with inflammatory breast cancer. 3. Screening mammogram was last done on 08/11/2023. She has an appointment for 08/19/2024 and the order slip was given to the patient for this. 4. Osteoporosis prevention was discussed. I have stressed the importance of adequate calcium, vitamin D and regular exercise. Recommended amounts of calcium and vitamin D were also discussed. We will repeat the bone density test today. 5. We have discussed her elevated blood pressure. I recommended that she check her own blood pressures on a regular basis at home and she will follow-up with her PCP for blood pressure elevations. 6. She was advised to return in one year for her annual well woman exam.
== END ==
LOC: WWCWWP 09:52
PROVIDERS: ATTEND Obstetrics & Gynecology
DX: Z01.419 Encounter for gynecological examination (general) (routine) without abnormal findings (principal); I10 Essential (primary) hypertension; M85.80 Other specified disorders of bone density and structure, unspecified site; Z78.0 Asymptomatic menopausal state; Z87.891 Personal history of nicotine dependence; Z88.1 Allergy status to other antibiotic agents

== ENCOUNTER → 2024-08-05 | Outpatient (CLI) | payer MEDICARE ==
--- NOTE | 2024-08-05 14:30 | BD ---
EXAMINATION TYPE: Axial Bone Density DATE OF EXAM: 08/05/2024 CLINICAL HISTORY: 69 years old Female. ICD-10 CODE: Z78.0 POST MENOPAUSAL WITHOUT HRT , Additional H istory: Height: 62 Weight: 145.5 FRAX RISK QUESTIONS: Alcohol (3 or more units per day): no Family History (Parent hip fracture): no Glucocorticoids (More than 3mos): no (Ex: prednisone, prednisolone, methylprednisolone, dexamethasone, and hydrocortisone). History of Fracture in Adulthood: no Secondary Osteoporosis: 1. Type 1 Diabetes: no 2. Hyperthyroidism: no 3. Menopause before 45: no 4. Malnutrition: no 5. Chronic liver disease: no Rheumatoid Arthritis: no Current Tobacco Use: no RISK FACTORS HISTORY OF: Surgery to Spine/Hip(right/left)/Wrist (right/left): no EXAM MEASUREMENTS: Bone mineral densitometry was performed using the [employer]. Bone mineral density as measured about the Lumbar spine is: ----- L1-L4(G/cm2): 1.012 T Score Values are as follows: ----- L1: -1.9 ----- L2: -2.9 ----- L3: -1.3 ----- L4: 0.0 ----- L1-L4: -1.4 Z Score Values are as follows: ----- L1: -0.3 ----- L2: -1.3 ----- L3: 0.3 ----- L4: 1.6 ----- L1-L4: 0.2 Bone mineral density has: decreased -9.3 % since study of: 09.23.2018 Bone mineral density about the R hip (g/cm2): 0.825 Bone mineral density about the L hip (g/cm2): 0.816 T Score values are as follows: -----R Neck: -1.3 -----L Neck: -1.9 -----R Total: -1.5 -----L Total: -1.5 Z Score values are as follows: -----R Neck: 0.2 -----L Neck: -0.4 -----R Total: -0.1 -----L Total: -0.2 Bone mineral density has: decreased -4.7 % since study of: 2.7.2019 FRAX%s: The graph provided illustrates a 11.4% chance for a major osteoporotic fx and a 1.9% chance f or the hips probability for fx in 10 years time. IMPRESSION: Osteopenia (T Score between -2.5 and -1). There is slightly increased risk of fracture and the patient may be considered for treatment. Re-Screen 2-5 years. NOTE: T-SCORE=SD OF THE YOUNG ADULT MEAN. [facility], , 08/05/2024 2:28 PM
== END | disposition home or self-care (01) ==
LOC: RADBDWWP 10:24
PROVIDERS: ATTEND Obstetrics & Gynecology
DX: M85.89 Other specified disorders of bone density and structure, multiple sites (principal); Z78.0 Asymptomatic menopausal state
CPT/HCPCS: 77080

== ENCOUNTER → 2024-08-19 | Outpatient (CLI) | payer MEDICARE ==
--- NOTE | 2024-08-19 17:40 | MM ---
Reason for Exam: Screening (asymptomatic). Last mammogram was performed 1 year(s) and 1 month(s) ago. Patient History: Menarche at age 13. First Full-Term at age 25. Postmenopausal. Patient used Hormonal Contraceptives for 15 years. Core Biopsy on the Right side. Excisional Biopsy on the Left side. 01/20/2020, Benign Core Biopsy on the left side. 11/04/2004, Benign Stereotactic Core Biopsy on the right side. Paternal aunt had breast cancer. Risk Values: Liliane 5 year model risk: 2.3%. NCI Lifetime model risk: 7.4%. Prior Study Comparison: 06/14/2021 Bilateral Screening Mammogram, [facility]. 06/16/2022 Bilateral MG 3D screening mammo w/cad, [facility]. 08/11/2023 Bilateral MG 3D screening mammo w/cad, [facility]. Tissue Density: There are scattered areas of fibroglandular density. Findings: Analyzed By CAD. The pattern is symmetrical. There is a focal asymmetry in the upper outer right breast, stable from comparison. Core marker is within the left breast. Core marker is within the right breast. Scattered benign punctate calcifications are present bilaterally. No significant interval change. No suspicious groups of microcalcifications, spiculated or lobular masses, architectural distortion or other secondary signs of malignancy are mammographically apparent. Overall Assessment: Benign, BI-RAD 2 Management: Screening Mammogram of both breasts in 1 year. A negative mammogram report should not preclude additional follow up of suspicious palpable abnormalities. Patient should continue monthly self breast exam. A clinical breast exam by your physician is recommended on an annual basis and results should be correlated with mammographic findings. Note on Liliane scores and lifetime risk: 1. A Liliane score greater than 3% is considered moderate risk. If this is the case, consider specialist referral to assess eligibility for a risk reducing agent. 2. If overall lifetime risk for the development of breast cancer is 20% or higher, the patient may qualify for future screening with alternating mammogram and breast MRI. [facility], , 08/19/2024 5:37 PM. Electronically signed and approved by: Tahir Melton D.O. Radiologis
== END | disposition home or self-care (01) ==
LOC: RADMAMWWP 09:16
PROVIDERS: ATTEND Family Medicine
DX: Z12.31 Encounter for screening mammogram for malignant neoplasm of breast (principal); Z78.0 Asymptomatic menopausal state; Z80.3 Family history of malignant neoplasm of breast; R92.323 Mammographic fibroglandular density, bilateral breasts; Z98.82 Breast implant status
CPT/HCPCS: 77063; 77067